=== PATIENT | female | born 1960 | race Caucasian/White ===

== ENCOUNTER 2018-10-06 12:48 | Outpatient (CLI) | payer MEDICAID, SELFPAY ==
[2018-10-06 14:00] LABS: Anion Gap 8.3 mmol/L (3-11); BUN 12 mg/dL (7-18); CO2 28.7 mmol/L (21.0-32.0); CREATININE 0.98 mg/dL (0.55-1.02); Calcium 8.9 mg/dL (8.5-10.1); Chloride 102 mmol/L (98-107); Estimated GFR 58.29 (mL/min/1.73m2); Glucose 144 mg/dL (70-100); Potassium 3.9 mmol/L (3.5-5.1); Sodium 139 mmol/L (136-145)
== END 2018-10-06 13:08 ==
PROVIDERS: PCP Family Medicine; Visit Provider Family Medicine
DX: G62.9 Polyneuropathy, unspecified (principal)
CPT/HCPCS: 36415; 80048

== ENCOUNTER 2018-11-10 12:38 | Emergency (ER) | payer MEDICAID, SELFPAY ==
[2018-11-10 13:08] VITALS: BP 125/92; PULSE 80; RESP 18; TEMP 36.6; O2SAT 94
--- NOTE | 2018-11-10 14:12 | W.ED.GENAD ---
Discharge Plan Disposition Patient Disposition: HOME Condition: Stable Discharge Details Chief Complaint: RespSymp Clinical Impression: Bronchitis, Chronic cough Primary Care Provider: Wyatt Canela ED Provider: Sandy Haq Home Meds and New Rx's Prescriptions: New prednisone 20 mg tablet 20 mg PO DIRECTED Qty: 12 RF: 0 azithromycin [Zithromax] 500 mg tablet 500 mg PO DAILY 5 Days Qty: 5 RF: 0 benzonatate [Tessalon Perles] 100 mg capsule 100 mg PO TID PRN (Reason: cough) Qty: 10 RF: 0 Continued nystatin 100,000 unit/gram powder 1 applic TP BID Qty: 60 RF: 3 nortriptyline 75 mg capsule 75 mg PO HS Qty: 90 RF: 3 prednisone 5 mg tablet 2.5 mg PO DAILY Qty: 45 RF: 3 ascorbate calcium 500 MG tablet 1 tab PO RF: 0 calcium carbonate-vitamin D3 [Caltrate with Vitamin D3] 1 EACH tablet 1 tab PO DAILY RF: 0 ibuprofen [Motrin IB] 200 MG tablet 3 - 4 tab PO QPM RF: 0 multivitamin 1 EACH capsule 1 cap PO DAILY RF: 0 diphenhydramine HCl [Benadryl] 25 MG capsule 25 mg PO TID RF: 0 cyanocobalamin (vitamin B-12) 1,000 MCG tablet 1,000 mcg PO DAILY RF: 0 trazodone 50 MG tablet 3 tab PO HS Qty: 270 RF: 3 omeprazole 40 MG capsule,delayed release(DR/EC) 40 mg PO DAILY Qty: 90 RF: 4 acetaminophen-codeine 1 EACH tablet 1 tab PO QID PRNQty: 30 RF: 1 gabapentin 800 MG tablet PO QID Qty: 450 RF: 4 gabapentin 600 MG tablet 600 mg PO QID Qty: 360 RF: 3 levothyroxine [Synthroid] 125 mcg tablet 125 mcg PO DAILY Qty: 90 RF: 4 atenolol 50 mg tablet 75 mg PO DAILY Qty: 135 RF: 4 lorazepam [Ativan] 0.5 mg tablet 2 mg PO DAILY Qty: 120 RF: 1 Discharge Instructions Instructions: Acute Bronchitis (ED), Acute Cough (ED) Additional Instructions: Use the albuterol inhaler as needed and directed for shortness of breath or wheezing. Take the steroids until finished. If you have no relief or worsening of symptoms in the next 2 days, you may start the antibiotics. Follow-up with your primary care doctor in 1 week for reevaluation. Return immediately to the emergency department any worsening or new concerning symptoms. Discharge Data Discharge Physician: Sandy Haq Medical Decision Making 58-year-old female who presents with cough with chest congestion and wheezing for the past 2 months. Patient admits to occasional shortness of breath and chest tightness as well as low-grade fever. Normal respirations and afebrile. O2 sat 94% on RA. Scattered rhonchi and minimal wheezing. She is speaking in full sentences, appears nontoxic and in no acute distress. 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 She was offered CXR but declines. Presentation can be likely consistent with bronchitis. Will give patient a prescription for prednisone, Tessalon Perles, as well as albuterol inhaler to go. She was also given a prescription for Zithromax or if her symptoms do not improve or worsen for possible pneumonia. She is instructed to follow-up with a primary care doctor for reevaluation and return at any time if worse. HPI General Mode of arrival: ambulatory. Date/Time Provider Initiated Documentation: 11/10/18 13:09. Limitations to Documentation: no limitations. Information obtained by: patient. HPI Narrative: Patient is a 58-year-old female with a history of rheumatoid arthritis, fibromyalgia, lupus who presents with cough with chest congestion, occasional shortness of breath and wheezing for the past 2 months. Admits to low-grade fever of 100.1 a few days ago. She admits to occasional chest tightness. She states she has not had any recent hospital admissions or recent antibiotics. She has used Jocelin-Suches cough and cold without relief. She states the cough is bothering her the most, mainly at night. Related Data Home Medications Medication Instructions Recorded Confirmed ascorbate calcium 1 tab PO 01/18/13 07/09/18 calcium carbonate-vitamin D3 1 tab PO DAILY 01/18/13 11/10/18 [Caltrate with Vitamin D3] ibuprofen [Motrin IB] 3 - 4 tab PO QPM 01/18/13 11/10/18 multivitamin 1 cap PO DAILY 01/18/13 11/10/18 cyanocobalamin (vitamin B-12) 1,000 mcg PO DAILY 10/22/17 11/10/18 diphenhydramine HCl [Benadryl] 25 mg PO TID tab-cap 10/22/17 11/10/18 trazodone 3 tab PO HS #270 tab-cap 12/02/17 11/10/18 omeprazole 40 mg PO DAILY #90 tab-cap 12/12/17 11/10/18 acetaminophen-codeine 1 tab PO QID PRN #30 tab 01/06/18 11/10/18 gabapentin 0 PO QID #450 tab-cap 01/06/18 07/09/18 gabapentin 600 mg PO QID #360 tab-cap 02/19/18 11/10/18 levothyroxine 125 mcg tablet 125 mcg PO DAILY #90 tab-cap 07/03/18 11/10/18 atenolol 50 mg tablet 75 mg PO DAILY #135 tab-cap 07/06/18 11/10/18 nortriptyline 75 mg capsule 75 mg PO HS #90 tab-cap 09/10/18 11/10/18 nystatin 100,000 unit/gram topical 1 applic TP BID #60 gm 09/10/18 11/10/18 powder prednisone 5 mg tablet 2.5 mg PO DAILY #45 tab-cap 09/10/18 11/10/18 lorazepam 0.5 mg tablet 2 mg PO DAILY #120 tab 11/04/18 11/10/18 azithromycin [Zithromax] 500 mg PO DAILY 5 Days #5 tab 11/10/18 benzonatate [Tessalon Perles] 100 mg PO TID PRN #10 cap 11/10/18 prednisone 20 mg PO DIRECTED #12 tab 11/10/18 Previous Rx's Medication Instructions Recorded trazodone 3 tab PO HS #270 tab-cap 12/02/17 omeprazole 40 mg PO DAILY #90 tab-cap 12/12/17 gabapentin 600 mg PO QID #360 tab-cap 02/19/18 levothyroxine 125 mcg tablet 125 mcg PO DAILY #90 tab-cap 07/03/18 atenolol 50 mg tablet 75 mg PO DAILY #135 tab-cap 07/06/18 nortriptyline 75 mg capsule 75 mg PO HS #90 tab-cap 09/10/18 nystatin 100,000 unit/gram topical 1 applic TP BID #60 gm 09/10/18 powder prednisone 5 mg tablet 2.5 mg PO DAILY #45 tab-cap 09/10/18 lorazepam 0.5 mg tablet 2 mg PO DAILY #120 tab 11/04/18 azithromycin [Zithromax] 500 mg PO DAILY 5 Days #5 tab 11/10/18 benzonatate [Tessalon Perles] 100 mg PO TID PRN #10 cap 11/10/18 prednisone 20 mg PO DIRECTED #12 tab 11/10/18 Allergies Allergy/AdvReac Type Severity Reaction Status Date / Time Iodinated Contrast- Oral and Allergy Unknown Unverified 11/10/18 13:14 IV Dye General Stated Complaint: RespSymp CHRISTOPHER: 3 Review of Systems Review of Systems All systems reviewed & are unremarkable except as noted in HPI and below Constitutional Reports as per HPI, Denies chills and Reports fever(s) Eyes Denies blurry vision ENT Denies dizziness, Denies sore throat and Denies throat swelling Cardiovascular Denies chest pain and Reports dyspnea Respiratory Reports cough and Reports dyspnea Gastrointestinal Denies abdominal pain, Denies diarrhea and Denies vomiting Genitourinary Denies hematuria and Denies dysuria Musculoskeletal Denies back pain and Denies numbness Integumentary/Breasts Denies lesions and Denies rash Neurologic Denies dizziness, Denies focal weakness and Denies numbness Allergic/Immunologic Denies throat swelling FOR[facility] Medical History Fibromyalgia (Acute) Lupus (Acute) Rheumatoid arthritis (Chronic) Surgical History History of hysterectomy (Chronic) Biopsy of breast (~1996) Hysterectomy, Laproscopic Family History Mother Heart disease Father Essential hypertension Heart disease Stroke Sister No problems noted. Sister No problems noted. Brother Depression Social History highest education level completed: high school graduate pets and animals: No what type of physical activity do you participate in: none Smoking and Tabacco status: Never alcohol intake: never substance use type: does not use carolynn/denominational: Johovah Witness special carolynn needs: Yes agree to transfusion: No Exam Const General: cooperative, healthy appearing and no acute distress HENMT Head: normal to inspection Ears: hearing grossly normal bilaterally, external ears normal and TM's normal bilaterally General nose exam: external nose normal Face and sinus: normal facial exam Mouth: oral mucosae normal Throat: posterior oropharynx normal Eyes General: appearance normal, both eyes and all related structures EOM: EOM intact bilaterally Neck Neck: normal visual inspection and No submandibular swelling Lymphatic: no lymphadenopathy noted Chest Chest: normal inspection of the chest and no tenderness Resp Effort & Inspection: normal respiratory effort and able to speak in complete sentences Auscultation: clear to auscultation bilaterally, rhonchi upper bilaterally and lower bilaterally and wheezes scattered wheezes (minimal ) Cardio Rate: regular rate Rhythm: regular rhythm GI Inspection: normal to inspection Palpation: soft, not firm, not rigid and nontender Auscultation: normal bowel sounds Back/Spine/Pelvis Thoracic/Lumbar Spine: thoracic and lumbar spine normal to inspection Pelvis: no pain with anterior-posterior compression Skin General skin exam: no rashes or lesions noted Neuro General: alert, awake and oriented x3 Cognition: normal cognition Speech: speech normal Motor: muscle tone normal throughout Sensory Exam: no sensory deficits noted Extrem General: normal to inspection, full ROM, normal capillary refill, no calf tenderness bilaterally and no edema Psych Appearance: grossly normal Mental Status: mental status grossly normal Speech and Movement: speech and movement normal Affect: normal affect Course Vital Signs Temperature 97.9 F 11/10/18 13:08 Pulse 80 11/10/18 13:08 Respiratory Rate 18 11/10/18 13:08 Blood Pressure 125/92 H 11/10/18 13:08 Pulse Oximetry 94 L 11/10/18 13:08 Temperature 97.9 F 11/10/18 13:08 Temperature Source Temporal Artery Scan 11/10/18 13:08 Pulse 80 11/10/18 13:08 Respiratory Rate 18 11/10/18 13:08 Respiratory Effort Non-Labored 11/10/18 13:17 Respiratory Depth Normal 11/10/18 13:17 Blood Pressure 125/92 H 11/10/18 13:08 Pulse Oximetry 94 L 11/10/18 13:08 Oxygen Delivery Method Room Air 11/10/18 13:08 Oxygen Flow Rate 0 11/10/18 13:08 Pain Level 5 11/10/18 13:08
[2018-11-10] MEDS: Albuterol HFA 8 GM 60 PUFF INH IH (14:20)
== END 2018-11-10 15:02 | disposition home or self-care (01) ==
PROVIDERS: Emergency Provider Physician Assistant; PCP Family Medicine
DX: J20.9 Acute bronchitis, unspecified (principal); R05 Cough; Z53.29 Procedure and treatment not carried out because of patient's decision for other reasons
CPT/HCPCS: 99283

== ENCOUNTER 2019-03-22 14:14 | Emergency (ER) | payer MEDICAID, SELFPAY ==
[2019-03-22 14:25] VITALS: BP 121/73; RESP 18; TEMP 36.6; O2SAT 96
--- NOTE | 2019-03-22 14:52 | ED.GENADUL_ITS ---
Discharge Plan Disposition Patient Disposition: HOME Condition: Stable Discharge Details Chief Complaint: Sorethroat Clinical Impression: Acute pharyngitis Primary Care Provider: Wyatt Canela ED Provider: David Curtis Home Meds and New Rx's Prescriptions: Continued nystatin 100,000 unit/gram powder 1 applic TP BID Qty: 60 RF: 3 nortriptyline 75 mg capsule 75 mg PO HS Qty: 90 RF: 3 ascorbate calcium 500 MG tablet 1 tab PO RF: 0 calcium carbonate-vitamin D3 [Caltrate with Vitamin D3] 1 EACH tablet 1 tab PO DAILY RF: 0 ibuprofen [Motrin IB] 200 MG tablet 3 - 4 tab PO QPM RF: 0 multivitamin 1 EACH capsule 1 cap PO DAILY RF: 0 diphenhydramine HCl [Benadryl] 25 MG capsule 25 mg PO TID RF: 0 acetaminophen-codeine 1 EACH tablet 1 tab PO QID PRNQty: 30 RF: 1 levothyroxine [Synthroid] 125 mcg tablet 125 mcg PO DAILY Qty: 90 RF: 4 atenolol 50 mg tablet 75 mg PO DAILY Qty: 135 RF: 4 lorazepam [Ativan] 0.5 mg tablet 2 mg PO DAILY Qty: 120 RF: 1 trazodone 50 mg tablet 150 mg PO HS Qty: 270 RF: 3 cyanocobalamin (vitamin B-12) 1,000 mcg tablet 1,000 mcg PO DAILY Qty: 90 RF: 4 gabapentin 800 mg tablet See Rx Instructions PO .COMPLEX Qty: 450 RF: 4 prednisone 5 mg tablet 2.5 mg PO DAILY Qty: 45 RF: 3 omeprazole 40 mg capsule,delayed release(DR/EC) 40 mg PO DAILY Qty: 90 RF: 4 gabapentin 600 mg tablet 600 mg PO TID RF: 0 Discharge Instructions Instructions: Pharyngitis (ED) Additional Instructions: Continue to stay well-hydrated, allow for extra rest, and take [id number] sore throat medications as directed on packaging. Return immediately to the emergency department for any new or significant worsening of symptoms, difficulty breathing, or inability to swallow. Otherwise follow-up with your primary care provider for reassessment if not improving over the next week Referrals: Wyatt Canela MD [Primary Care Provider] - (As needed for reassessment) Discharge Data Discharge Date/Time-TO BE ENTERED AT DEPARTURE: 03/22/19 15:27 Medical Decision Making Patient presenting to the emergency department for chief complaint of sore throat. Patient states that this started on Friday morning and has gotten progressively worse since and has noted some right ear pain along with a mild dry cough. She does state a low-grade fever of 99.2. Patient is taken some [id number] ibuprofen. staff research associate initiated rapid strep protocol which was reviewed as negative. Strep screen was physical exam reveals that page patient does not have tonsils otherwise posterior pharynx erythema, no exudates, no swelling, no stridor, clear lung sounds, mild anterior cervical lymphadenopathy otherwise TMs are clear bilateral and no other HEENT respiratory or cardiac findings. Given reassuring exam with negative rapid strep testing feel that more likely this is pharyngitis of viral etiology. Discussed thoroughly with patient conservative management along with return precautions. Patient to return for any new or worsening symptoms otherwise follow-up with primary care if not improving. After discussion of diagnosis and plan of care patient has no further needs, questions, or concerns and states clear understanding to return to the emergency department for any worsening symptoms. HPI General Mode of arrival: ambulatory . Date/Time Provider Initiated Documentation: 03/22/19 14:21 . Limitations to Documentation: no limitations . Information obtained by: patient and RN notes reviewed . History of Present Illness 58 year old F presents to the emergency department with the chief complaint of Sore throat, described as moderate, with intensity rated at 8. Quality is described as aching, and is localized to the mouth (Sore throat). Patient started experiencing this day(s) (3) and it has been constant. No relieving factors improve symptom(s), No exacerbating factors reported . Patient notes cough. Patient did receive the following treatments prior to arrival, NSAID Related Data Home Medications Medication Instructions Recorded Confirmed ascorbate calcium 1 tab PO 01/18/13 11/13/18 calcium carbonate-vitamin D3 1 tab PO DAILY 01/18/13 03/22/19 [Caltrate with Vitamin D3] ibuprofen [Motrin IB] 3 - 4 tab PO QPM 01/18/13 03/22/19 multivitamin 1 cap PO DAILY 01/18/13 03/22/19 diphenhydramine HCl [Benadryl] 25 mg PO TID tab-cap 10/22/17 03/22/19 acetaminophen-codeine 1 tab PO QID PRN #30 tab 01/06/18 03/22/19 levothyroxine 125 mcg tablet 125 mcg PO DAILY #90 tab-cap 07/03/18 03/22/19 atenolol 50 mg tablet 75 mg PO DAILY #135 tab-cap 07/06/18 03/22/19 nortriptyline 75 mg capsule 75 mg PO HS #90 tab-cap 09/10/18 03/22/19 nystatin 100,000 unit/gram topical 1 applic TP BID #60 gm 09/10/18 03/22/19 powder lorazepam 0.5 mg tablet 2 mg PO DAILY #120 tab 11/04/18 03/22/19 trazodone 50 mg tablet 150 mg PO HS #270 tab-cap 11/19/18 03/22/19 cyanocobalamin (vit B-12) 1,000 1,000 mcg PO DAILY #90 tab 11/27/18 03/22/19 mcg tablet gabapentin 800 mg tablet See Rx Instructions PO .COMPLEX 01/19/19 03/22/19 #450 tab-cap prednisone 5 mg tablet 2.5 mg PO DAILY #45 tab-cap 02/16/19 03/22/19 omeprazole 40 mg capsule,delayed 40 mg PO DAILY #90 tab-cap 03/08/19 03/22/19 release gabapentin 600 mg PO TID 03/22/19 03/22/19 Previous Rx's Medication Instructions Recorded levothyroxine 125 mcg tablet 125 mcg PO DAILY #90 tab-cap 07/03/18 atenolol 50 mg tablet 75 mg PO DAILY #135 tab-cap 07/06/18 nortriptyline 75 mg capsule 75 mg PO HS #90 tab-cap 09/10/18 nystatin 100,000 unit/gram topical 1 applic TP BID #60 gm 09/10/18 powder lorazepam 0.5 mg tablet 2 mg PO DAILY #120 tab 11/04/18 trazodone 50 mg tablet 150 mg PO HS #270 tab-cap 11/19/18 cyanocobalamin (vit B-12) 1,000 1,000 mcg PO DAILY #90 tab 11/27/18 mcg tablet gabapentin 800 mg tablet See Rx Instructions PO .COMPLEX 01/19/19 #450 tab-cap prednisone 5 mg tablet 2.5 mg PO DAILY #45 tab-cap 02/16/19 omeprazole 40 mg capsule,delayed 40 mg PO DAILY #90 tab-cap 03/08/19 release Allergies Allergy/AdvReac Type Severity Reaction Status Date / Time Iodinated Contrast- Oral and Allergy Unknown Unverified 11/13/18 12:59 IV Dye albuterol AdvReac Intermediate Chest Verified 11/13/18 13:11 heaviness and cough General Stated Complaint: Sorethroat CHRISTOPHER: 4 Review of Systems Constitutional Reports body ache(s), Denies chills, Reports fever(s) (Reports low-grade 99.1), Denies headache(s), Reports malaise and Reports poor appetite Eyes Denies eye discharge ENT Reports as per HPI, Denies ear discharge, Reports otalgia, Denies headache(s), Denies nasal congestion, Denies nasal discharge, Denies neck pain, Reports sore throat and Denies throat swelling Cardiovascular Denies chest pain and Denies dyspnea Respiratory Reports cough and Denies dyspnea Musculoskeletal Denies joint swelling and Denies neck pain Integumentary/Breasts Denies rash Neurologic Denies headache(s) Allergic/Immunologic Denies throat swelling [facility] Medical History Fibromyalgia (Acute) Lupus (Acute) Rheumatoid arthritis (Chronic) Surgical History History of hysterectomy (Chronic) Biopsy of breast (~1996) Hysterectomy, Laproscopic Family History Mother Heart disease Father Essential hypertension Heart disease Stroke Sister No problems noted. Sister No problems noted. Brother Depression Social History Smoking/Tobacco Use Status: Never Alcohol Intake: current Alcohol Intake frequency: holidays/special occasions only Drug use: Never Substance use type: does not use Pets and animals: No What type of physical activity do you participate in: none Renate/Pentecostalism: Faith Special renate needs: Yes Agree to transfusion: No Do you feel safe in your relationship?: Yes Exam Const General: cooperative, comfortable and no acute distress Orientation: alert and awake [facility] Head: normal to inspection, normocephalic and atraumatic Ears: hearing grossly normal bilaterally, external ears normal and TM's normal bilaterally General nose exam: external nose normal Mouth: oral mucosae normal, no drooling, no muffled voice and no trismus Throat: uvula midline, posterior oropharynx abnormal erythema; no exudates and tonsils absent Neck Neck: normal visual inspection, full ROM, no meningeal signs, trachea midline, supple and lymphadenopathy (Anterior cervical) Resp Effort & Inspection: normal respiratory effort and able to speak in complete sentences Auscultation: clear to auscultation bilaterally Cardio Rate: regular rate Rhythm: regular rhythm Heart Sounds: S1 normal, S2 normal, normal S1 and S2, no click, no gallops, no murmurs and no rubs Skin General skin exam: no rashes or lesions noted and dry skin (warm) Course Vital Signs Temperature 36.6 C 03/22/19 14:25 Respiratory Rate 18 03/22/19 14:25 Blood Pressure 121/73 03/22/19 14:25 Pulse Oximetry 96 03/22/19 14:25 Temperature 36.6 C 03/22/19 14:25 Temperature Source Skin 03/22/19 14:25 Respiratory Rate 18 03/22/19 14:25 Respiratory Effort Non-Labored 03/22/19 14:28 Blood Pressure 121/73 03/22/19 14:25 Blood Pressure Position Sitting 03/22/19 14:25 Pulse Oximetry 96 03/22/19 14:25 Oxygen Delivery Method Room Air 03/22/19 14:25 Oxygen Flow Rate 0 03/22/19 14:25 Pain Level 8 03/22/19 14:25 Lab/Test Results Lab/Test Results: 03/22/19 14:40 Tonsil - Not Specified Streptococcus Screen (JAIRO) - Pending
== END 2019-03-22 15:27 | disposition home or self-care (01) ==
PROVIDERS: Emergency Provider Nurse Practitioner Family; PCP Family Medicine
DX: J02.9 Acute pharyngitis, unspecified (principal)
CPT/HCPCS: 87880; 99282; 87081

== ENCOUNTER 2019-05-05 12:31 | Outpatient (CLI) | payer MEDICAID, SELFPAY ==
[2019-05-05 14:09] LABS: TSH 0.72 uIU/mL (0.36-3.74)
[2019-05-06 04:38] LABS: Vitamin D 25 Total 34.4 ng/ml (30-100)
[2019-05-07 10:18] LABS: IgA 286 mg/dL (85-499); Interpretation SEE COMMENTS; Tissue Transglutaminase IgA <1.2 U/mL (<4.0)
== END 2019-05-05 12:51 ==
PROVIDERS: PCP Family Medicine; Visit Provider Family Medicine
DX: E03.9 Hypothyroidism, unspecified (principal); D51.9 Vitamin B12 deficiency anemia, unspecified; K58.9 Irritable bowel syndrome, unspecified; M81.0 Age-related osteoporosis without current pathological fracture
CPT/HCPCS: 36415; 82306; 82784; 83516; 84443

== ENCOUNTER 2019-05-19 12:00 | Outpatient (CLI) | payer MEDICAID, SELFPAY ==
[2019-05-19 12:56] LABS: Abs Immature Grans 0.01 k/cumm (0.0-0.09); Absolute Basophil Count 0.08 k/cumm (0.0-0.2); Absolute Eosinophil Count 0.05 k/cumm (0.0-0.7); Absolute Lymphocyte Count 1.01 k/cumm (1.2-3.4); Absolute Monocyte Count 0.58 k/cumm (0.11-0.7); Absolute Neutrophil Count 2.16 k/cumm (1.2-6.7); Basophils % 2.1; Eosinophils % 1.3; HCT 38.5 % (36.0-46.0); HGB 12.6 g/dL (12.0-15.5); Immature Grans % 0.3; Mean Corp. HGB Concentration 32.7 g/dL (32.0-36.0); Mean Corpuscular Hemoglobin 30.6 pg (27.0-33.0); Mean Corpuscular Volume 93.4 fL (80-95); Mean Platelet Volume 10.7 fL (8.0-11.0); Monocytes % 14.9; Neutrophils % 55.4; Platelet Count 336 x1000/uL (130-400); RBC 4.12 m/cumm (4.00-5.20); RBC Distribution Width 13.1 % (11.7-14.6); White Blood Cell Count 3.89 k/cumm (4.4-10.8)
[2019-05-19 13:05] LABS: C-Reactive Protein 0.35 mg/dL (0.0-0.3)
[2019-05-19 13:53] LABS: ESR 40 mm/hr (0-30)
== END 2019-05-19 12:20 ==
PROVIDERS: PCP Family Medicine; Visit Provider Family Medicine
DX: M32.9 Systemic lupus erythematosus, unspecified (principal)
CPT/HCPCS: 36415; 85652; 85025; 86140

== ENCOUNTER 2019-06-07 00:37 | Outpatient (CLI) | payer MEDICAID, SELFPAY ==
--- NOTE | 2019-06-07 15:27 | DI.RAD_ITS ---
EXAM: XR KNEE RT 3V AP,LAT,ZION CLINICAL HISTORY: . TECHNIQUE: 2D digital imaging was performed. COMPARISON: None. FINDINGS: BONES: No acute fracture is present. No bony destructive lesion is seen. JOINTS: The knee is normally aligned. No joint effusion is seen. SOFT TISSUE: Normal. IMPRESSION: Unremarkable radiographs of the right knee.
== END 2019-06-07 00:57 ==
PROVIDERS: PCP Family Medicine; Visit Provider Family Medicine
DX: M17.11 Unilateral primary osteoarthritis, right knee; M25.561 Pain in right knee
CPT/HCPCS: 73562

== ENCOUNTER 2019-06-10 00:56 | Outpatient (CLI) | payer MEDICAID, SELFPAY ==
--- NOTE | 2019-06-10 15:30 | DI.DEXA_ITS ---
EXAM: The scanogram XR DEXA BONE DENSITY W/WO CK INDICATION: K58.9 IBS, CORTICOSTEROID DEPENDENCE. TECHNIQUE: Dexa scan was performed according to the usual protocol. FINDINGS:: The scanogram is unremarkable. For the left hip and a T-score of 0.9 and a Z-score of 1.8 are within the normal range. For the lumbar spine a T-score of 0.4 and a Z-score 1.8 are within the normal range.
== END 2019-06-10 01:16 ==
PROVIDERS: PCP Family Medicine; Visit Provider Family Medicine
DX: K58.9 Irritable bowel syndrome, unspecified (principal); Z79.52 Long term (current) use of systemic steroids; Z13.820 Encounter for screening for osteoporosis
CPT/HCPCS: 77080

== ENCOUNTER 2020-04-24 02:11 | Outpatient (CLI) | payer MEDICAID, SELFPAY ==
[2020-04-24 13:35] LABS: Bilirubin Negative (Negative); Blood Trace-intact (Negative); Clarity Clear (Clear); Glucose Negative (Negative); Ketones Negative (Negative); Leukocyte Esterase Trace (Negative); Nitrite Negative (Negative); Specific Gravity 1.015 (1.005-1.025); Urobilinogen 0.2 EU/dL (Up TO 0.2)
[2020-04-24 13:39] LABS: Hemoglobin A1C 5.7 % (3.8-5.6)
[2020-04-24 13:40] LABS: Bacteria Rare HPF (Negative); Epithelial Cells Many HPF (Negative)
[2020-04-24 13:41] LABS: Casts Negative LPF (Negative); Crystals Negative HPF (Negative); Mucus Negative (Negative); Other Cells Rare Renal (Negative)
[2020-04-24 13:42] LABS: C & S Indicated? No/Sq. Contamination
[2020-04-24 15:04] LABS: Anion Gap 9.6 mmol/L (3-11); BUN 11 mg/dL (7-18); CO2 24.4 mmol/L (21.0-32.0); CREATININE 1.02 mg/dL (0.55-1.02); Calcium 9.2 mg/dL (8.5-10.1); Calculated LDL 116 mg/dL (<100); Chloride 105 mmol/L (98-107); Cholesterol 196 mg/dL (<200); Estimated GFR 55.47 (mL/min/1.73m2); Glucose 181 mg/dL (74-106); HDL Cholesterol 37 mg/dL (40-60); Potassium 3.7 mmol/L (3.5-5.1); Sodium 139 mmol/L (136-145); TSH 5.35 uIU/mL (0.36-3.74); Triglyceride 215 mg/dL (<150); Vitamin B12 1791 pg/mL (193-986)
== END 2020-04-24 02:31 ==
PROVIDERS: PCP Family Medicine; Visit Provider Family Medicine
DX: E03.9 Hypothyroidism, unspecified (principal); R53.83 Other fatigue; R73.03 Prediabetes; D51.9 Vitamin B12 deficiency anemia, unspecified; R39.11 Hesitancy of micturition
CPT/HCPCS: 36415; 80048; 80061; 81003; 81015; 82607; 83036; 84443

== ENCOUNTER 2020-07-31 00:18 | Outpatient (CLI) | payer MEDICAID, SELFPAY ==
--- NOTE | 2020-07-31 10:30 | DI.NM_ITS ---
APPROVED REPORT Exam: Pharmacologic Patient Location: Out-Patient Room/Bed: Stress Nurse: Debbie Webster RN BMI: 34.56 Baseline Rhythm: Sinus Rhythm Indications: Aching, intermittent precordial chest pain, occuring daily. Medical History Medical History: Neuropathy, Hypothyroidism, Fibromyalgia, Rheumatoid Arthritis Cardiac Medications: Omeprazole, Atenolol Allergies: Albuterol, Contrast Dye Cardiac Risk Factors: FHX of CAD, Hyperlipidemia Previous Cardiac Procedures: None Pretest Chest Pain Characteristics: 11/29 precordial chest pain. Exercise History: Sedentary Physical Disabilities: Legs Lung Sounds: Clear to auscultation Heart Sounds: Regular Stress Test Details Test: Exercise stress converted to pharmacologic stress due to failure to obtain a diagnostic stress test. Reason for pharmacologic stress test: changed from exercise stress test due to inability to reach t arget heart rate. Nuclear Acquisition: Stress Tc-99m/Stress Tc-99m 1 day Rest Isotope: Tc-99m Sestamibi. Dose: 10.8 Date: 07/31/2020 Injection Time: 1045 Stress Isotope: Tc-99m Sestamibi. Dose: 35 Date: 07/31/2020 Injection Time: 1325 HR Resting HR Supine: 92 bpm Max Heart Rate (APMHR): 161.318081 bpm Resting HR Standin bpm Target HR (85% APMHR): 136.470963 bpm Max HR Achieved: 130 bpm % of APMHR: 80.75 Recovery HR: 104 bpm HR response to stress: Normal HR response to stress BP Resting BP Supine: 132/80 mmHg Resting BP Standin/82 mmHg Max BP: 142/66 mmHg Recovery BP: 134/78 mmHg ECG Resting ECG: Sinus Rhythm Ectopy: None. Stress ECG: Sinus Tachycardia ST Change: No significant ST segment changes noted. Arrhythmia: None. Recovery ECG: Sinus Tachycardia Recovery ST Change: No significant ST segment changes noted. Recovery Arrhythmia: None. Clinical Reason for Termination: Fatigue Stress Symptoms: Leg Fatigue Exercise duration: 2 min46 sec Highest Stage Reached: Stage 1: 1.7 mph at 10% grade. Exercise capacity: 4.64 METs Angina Score: Non-Limiting Stress ECG Conclusion 1. The resting electrocardiogram was normal. The patient exercised on the Ga protocol and complet ed a workload of 4.64 METS, limited by leg fatigue 2. Blunted heart rate and blood pressure response to exercise. The patient received pharmacologic st ress with regadenoson 3. Peak heart rate achieved was 80% of predicted. Electrocardiographically the test was nondiagnosti c due to inadequate heart rate 4. No dysrhythmias were seen Stress Test Summary STAGE Time (mins) Speed (mph) Grade (%) HR BP SYMPTOMS METS Supine 92 132/80 3/10 CP Standing 96 138/82 3/10 CP 1 3 1.7 10 130 3/10 CP 4.6 1 min post Lexiscan injection 120 142/66 3/10 CP 3 min post Lexiscan injection 110 128/70 3/10 CP 6 min post Lexiscan injection 104 134/78 3/10 CP MPI Conclusion Normal myocardial perfusion without evidence of ischemia or infarction. EF 74% Radiologist Interpretation Radiologist Interpretation by: Gurjit Lopes MD Interpretation Date/Time: 08/02/2020 16:07:26
[2020-07-31] MEDS: Regadenoson 0.4 MG/5 ML SYR IVP (13:24)
== END 2020-07-31 00:38 ==
PROVIDERS: PCP Family Medicine; Visit Provider Family Medicine
DX: R07.2 Precordial pain (principal); Z82.49 Family history of ischemic heart disease and other diseases of the circulatory system; E78.5 Hyperlipidemia, unspecified
CPT/HCPCS: 78452; 93017; J2785

== ENCOUNTER 2020-12-08 02:30 | Outpatient (CLI) | payer MEDICAID, SELFPAY ==
[2020-12-08 12:43] LABS: Calculated LDL 58 mg/dL (<100); Cholesterol 135 mg/dL (<200); HDL Cholesterol 52 mg/dL (40-60); TSH 1.33 uIU/mL (0.36-3.74); Triglyceride 126 mg/dL (<150)
== END 2020-12-08 02:31 | disposition home or self-care (01) ==
LOC: LBO 02:30
PROVIDERS: PCP Family Medicine; Visit Provider Family Medicine
DX: E03.9 Hypothyroidism, unspecified (principal); E78.5 Hyperlipidemia, unspecified
CPT/HCPCS: 36415; 80061; 84443

== ENCOUNTER 2021-09-11 14:03 | Outpatient (CLI) | payer MEDICAID, SELFPAY ==
--- NOTE | 2021-09-11 14:00 | RT.EKG_ITS ---
APPROVED REPORT Exam: Resting ECG Reason for Exam: chest pain Patient Location: O Conclusion Sinus Rhythm Nondiagnostic anterior T abnormalities
== END 2021-09-11 14:04 | disposition home or self-care (01) ==
LOC: DI.CM 14:04
PROVIDERS: PCP Family Medicine; Visit Provider Family Medicine
DX: R07.89 Other chest pain (principal)
CPT/HCPCS: 93010

== ENCOUNTER 2021-09-11 15:02 | Outpatient (REF) | payer MEDICAID, SELFPAY ==
[2021-09-11 20:40] LABS: Absolute Basophil Count 0.09 10^3/uL (0.0-0.2); Absolute Eosinophil Count 0.06 10^3/uL (0.0-0.7); Absolute Lymphocyte Count 1.31 10^3/uL (1.2-3.4); Absolute Monocyte Count 0.72 10^3/uL (0.1-0.8); Absolute Neutrophil Count 1.76 10^3/uL (1.2-6.7); Basophils % 2.3; Eosinophils % 1.5; HCT 38.7 % (36.0-46.0); HGB 12.8 g/dL (11.2-15.7); Lymphocytes % 33.2; MCH 31.6 pg (27.0-33.0); MCHC 33.1 % (32.0-36.0); MCV 95.6 fL (80-95); MPV 10.8 fL (8.0-11.0); Monocytes % 18.3; Neutrophils % 44.7; Nucleated RBC 0 %; Platelet Count 328 10^3/uL (130-400); RBC 4.05 10^6/uL (3.93-5.22); RDW 13.2 % (11.7-14.6); RDW-SD 47.1 fL; WBC 3.94 10^3/uL (4.4-10.8)
[2021-09-11 20:48] LABS: ESR 38 mm/hr (0-30)
[2021-09-11 20:51] LABS: Bilirubin Negative (Negative); Blood Negative (Negative); Clarity Clear (Clear); Glucose Negative (Negative); Ketones Negative (Negative); Leukocyte Esterase Trace (Negative); Nitrite Negative (Negative); Urobilinogen 0.2 EU/dL (Up TO 0.2)
[2021-09-11 21:08] LABS: Crystals Mod Calcium Oxalate HPF (Negative); Epithelial Cells Many HPF (Negative); Mucus Trace (Negative); Other Cells Few Renal (Negative); RBC Negative HPF (0-2)
[2021-09-11 21:09] LABS: C & S Indicated? C&S Done As Ordered
[2021-09-11 21:10] LABS: Bacteria Rare HPF (Negative)
[2021-09-11 22:02] LABS: ALT 53 U/L (14-59); AST 34 U/L (15-37); Albumin 4.1 g/dL (3.4-5.0); Alkaline Phosphatase 102 U/L (46-116); Anion Gap 10.4 mmol/L (3-11); BUN 13 mg/dL (7-18); Bilirubin, Total 0.4 mg/dL (0.2-1.0); CO2 26.6 mmol/L (21.0-32.0); CREATININE 0.9 mg/dL (0.55-1.02); Calcium 9.2 mg/dL (8.5-10.1); Calculated LDL 60 mg/dL (<100); Chloride 102 mmol/L (98-107); Cholesterol 139 mg/dL (<200); Glucose 73 mg/dL (74-106); HDL Cholesterol 54 mg/dL (40-60); Potassium 4.1 mmol/L (3.5-5.1); Sodium 139 mmol/L (136-145); TSH (W/Ref FT4) 0.36 uIU/mL (0.36-3.74); Triglyceride 128 mg/dL (<150)
[2021-09-11 22:17] LABS: Vitamin B12 > 2000 pg/mL (193-986)
[2021-09-11 23:13] LABS: C-Reactive Protein 0.37 mg/dL (0.0-0.3)
[2021-09-13 05:30] LABS: Vitamin D 25 Total 44.7 ng/mL (30-100)
== END 2021-09-11 15:03 | disposition home or self-care (01) ==
LOC: LBN 15:02
PROVIDERS: PCP Family Medicine; Visit Provider Family Medicine
DX: M54.50 Low back pain, unspecified (principal); R07.9 Chest pain, unspecified; R35.0 Frequency of micturition; I10 Essential (primary) hypertension
CPT/HCPCS: 80053; 80061; 82306; 85652; 81003; 81015; 82607; 84443; 85025; 86140; 87086

== ENCOUNTER 2021-11-27 02:32 | Outpatient (CLI) | payer MEDICAID, SELFPAY ==
--- NOTE | 2021-11-27 08:00 | DI.MAMMO_ITS ---
Exam(s) MG MAMMO SCREENING 60 MIN DUR EXAM: MG MAMMO SCREENING 60 MIN DUR CLINICAL HISTORY: breast cancer screening,Z12.31. TECHNIQUE: Bilateral full field digital CC and MLO mammographic images were obtained with 3D tomosyn thesis and utilizing computer aided detection (CAD). COMPARISON: Prior mammograms were reviewed, the most recent being October 2017. FINDINGS: There has been no significant change in appearance and distribution of the fibroglandular tissue whic h is again noted be somewhat dense, this decreasing the sensitivity of the mammogram for finding hidd en underlying lesions A skin mole is noted medially in the left breast. This was proven additional image performed with sk in mole marker in place. There are no new spiculated masses nor malignant appearing microcalcification groups. There is no significant architectural distortion nor skin thickening-retraction. IMPRESSION: Dense bilateral fibroglandular tissue. No obvious radiographic evidence of malignancy nor significan t change compared to prior mammograms. BI-RADS Category 1 - Negative Breast Density - Category C - Heterogeneously dense Breast density Category C or D implies that the patient has dense breast tissue. Dense breast tissue can make it harder to find cancer on a mammogram. Dense breast tissue is also associated with an incr eased risk of breast cancer. This information about the result of the mammogram report was provided to the patient to raise their awareness. Use this report when you speak with the patient about their risks for breast cancer, which includes their family history. At that time, you may recommend additional screening tests (Ultrasoun d or MRI) as these tests may add significant information. A negative radiographic report should not delay biopsy if a dominant or clinically suspicious mass is present. Up to ten percent of cancers are not identified on mammography. A negative report may reinforce clinical impression. Adenosis and dense breasts may obscure an underlying neoplasm. False positive reports average 6 to 10%. Patient will receive a letter notifying them of these results.
== END 2021-11-27 02:52 ==
PROVIDERS: PCP Nurse Practitioner Family; Visit Provider Nurse Practitioner Family
DX: Z12.31 Encounter for screening mammogram for malignant neoplasm of breast (principal)
CPT/HCPCS: 77063; 77067

== ENCOUNTER 2022-08-08 11:08 | Emergency (ER) | payer MEDICAID, SELFPAY ==
[2022-08-08 11:10] VITALS: BP 133/82; PULSE 89; RESP 17; TEMP 36.6; O2SAT 97
--- NOTE | 2022-08-08 11:45 | RT.EKG_ITS ---
APPROVED REPORT Exam: Resting ECG Reason for Exam: chest pain, falls Patient Location: E HR:85 bpm ECG Measurements Heart Rate 85 AXIS OK 189 P 53 QRSd 94 QRS 61 QT 373 T 63 QTc 445 Conclusion Sinus rhythm...normal P axis, V-rate 60- 99 Probable left atrial enlargement...P >50mS, <-0.10mV V1 Nonspecific T abnrm, anterolateral leads...T <-0.10mV, I aVL V2-V6
--- NOTE | 2022-08-08 11:45 | DI.RAD_ITS ---
Exam(s) XR CHEST 2V PA LATERAL EXAM: XR CHEST 2V PA LATERAL CLINICAL HISTORY: left chest wall pain TECHNIQUE: 2D digital imaging was performed. COMPARISON: CR CHEST 2 VIEWS PA,LAT from 06/13/2011 FINDINGS: The heart is not enlarged. The lungs are clear and well expanded. No pleural effusion seen. Mediastin al contours appear intact. IMPRESSION: Normal chest. RADIATION DOSE DELIVERED: Total DLP
--- NOTE | 2022-08-08 11:45 | DI.CT_ITS ---
Exam(s) CT HEAD CERV SPINE FACIAL WO EXAM: CT HEAD CERV SPINE FACIAL WO COMPARISON: No exams were available for comparison FINDINGS: CT examination of the cervical spine was performed without contrast administration. There is no evidence of acute cervical spine fracture or dislocation. Intervertebral disc spaces are well maintained. Tracheolaryngeal structures appear intact. No cervical mass or adenopathy. Noncontrast cranial CT was performed. There is moderate bifrontal cerebral atrophy. No evidence of acute intracranial hemorrhage, mass effect, or midline shift. No calvarial fracture. The orbital and temporal bone structures appear intact. Visualized mastoid air cells and paranasal sinuses appear clear except for minimal mucoperiosteal thi ckening of the sphenoid sinuses. CT examination of the facial region was also performed. There is no evidence of an orbital facial fr acture. No intra orbital fluid collection or mass. The globes, retrobulbar fat, optic nerves, and e xtraocular musculature appear intact. Maxilla and visualized mandible appear intact. IMPRESSION: No evidence of acute cervical spine injury. No evidence of acute intracranial injury. No evidence of acute facial injury. RADIATION DOSE DELIVERED: Total DLP Total DLP DATA REPOSITORY: All CT scans at this facility are submitted to the National Radiology Data Registry (NRDR) Dose Index Registry (DIR) with the [employer] ([employer]). RADIATION OPTIMIZATION: All CT scans at this facility use at least one of these dose optimization te chniques: automated exposure control; mA and/or kV adjustment per patient size (includes targeted exa ms where dose is matched to clinical indication); or iterative reconstruction.
[2022-08-08 13:16] LABS: Bilirubin Negative (Negative); Blood Negative (Negative); Clarity Clear (Clear); Glucose Negative (Negative); Ketones Negative (Negative); Leukocyte Esterase Negative (Negative); Nitrite Negative (Negative); Urobilinogen 0.2 EU/dL (Up TO 0.2)
[2022-08-08 13:17] LABS: Abs Immature Grans 0.01 10^3/uL (0.0-0.06); Absolute Basophil Count 0.05 10^3/uL (0.0-0.2); Absolute Eosinophil Count 0.03 10^3/uL (0.0-0.7); Absolute Lymphocyte Count 0.88 10^3/uL (1.2-3.4); Absolute Monocyte Count 0.58 10^3/uL (0.1-0.8); Absolute Neutrophil Count 1.33 10^3/uL (1.2-6.7); Basophils % 1.7; HCT 35.3 % (36.0-46.0); Immature Grans % 0.3; Lymphocytes % 30.6; MCH 32.2 pg (27.0-33.0); MCV 95 fL (80-95); MPV 10.1 fL (8.0-11.0); Monocytes % 20.1; Neutrophils % 46.3; Platelet Count 264 10^3/uL (130-400); RBC 3.73 10^6/uL (3.93-5.22); RDW 12.5 % (11.7-14.6); RDW-SD 43.7 fL; WBC 2.88 10^3/uL (4.4-10.8)
[2022-08-08 13:42] LABS: ALT 36 U/L (14-59); AST 25 U/L (15-37); Albumin 3.9 g/dL (3.4-5.0); Alkaline Phosphatase 95 U/L (46-116); Anion Gap 6.9 mmol/L (3-11); BUN 11 mg/dL (7-18); Bilirubin, Total 0.3 mg/dL (0.2-1.0); CO2 31.1 mmol/L (21.0-32.0); Calcium 9.1 mg/dL (8.5-10.1); Chloride 104 mmol/L (98-107); Estimated GFR 64.09 (mL/min/1.73m2); Glucose 92 mg/dL (74-106); Lipase 41 U/L (73-393); Potassium 3.7 mmol/L (3.5-5.1); Sodium 142 mmol/L (136-145); TSH (W/Ref FT4) 0.05 uIU/mL (0.36-3.74); Total Protein 8.4 g/dL (6.4-8.2); Troponin I < 50 ng/L (<or=60)
[2022-08-08 14:00] VITALS: BP 136/79; PULSE 89; TEMP 36.4; O2SAT 93
[2022-08-08 14:03] LABS: FREE T4 1.23 ng/dL (0.76-1.46)
--- NOTE | 2022-08-08 14:52 | DI.RAD_ITS ---
Exam(s) XR FINGER RT MIDDLE EXAM: XR FINGER RT MIDDLE CLINICAL HISTORY: pip injury TECHNIQUE: COMPARISON: No exams were available for comparison FINDINGS: Three views were obtained. No evidence of acute fracture or dislocation. IMPRESSION: RADIATION DOSE DELIVERED: Total DLP
--- NOTE | 2022-08-08 14:53 | W.ED.GENAD ---
Discharge Plan Disposition Patient Disposition: Home Condition: Stable Discharge Details Clinical Impression: Head injury, Eyebrow laceration, Hyperthyroidism Primary Care Provider: [facility] ED Provider: Romelia Marvin Home Meds and New Rx's Prescriptions: Continued nystatin 100,000 unit/gram powder 1 applic TP BID Qty: 60 3RF ascorbate calcium (vitamin C) 500 MG tablet 1 tab PO DAILY calcium carbonate-vitamin D3 [Caltrate with Vitamin D3] 1 EACH tablet 1 tab PO DAILY ibuprofen [Motrin IB] 200 MG tablet 3 - 4 tab PO QPM multivitamin 1 EACH capsule 1 cap PO DAILY (DME) blood-glucose meter [Embrace TALK Glucose Monitor] Misc See Rx Instructions .ROUTE .MEDSUPPLY Qty: 1 0RF Rx Instructions: Once daily (DME) lancets Misc See Rx Instructions .ROUTE .MEDSUPPLY Qty: 100 0RF Rx Instructions: Once daily (DME) Embrace TALK test strips Strip See Rx Instructions .ROUTE .MEDSUPPLY Qty: 100 8RF Rx Instructions: Once daily trazodone 50 mg tablet 150 mg PO HS Qty: 270 3RF nortriptyline 75 mg capsule 75 mg PO HS Qty: 90 3RF prednisone 5 mg tablet 2.5 mg PO DAILY Qty: 45 3RF atenolol 50 mg tablet 75 mg PO DAILY Qty: 135 3RF triamcinolone acetonide 0.5 % cream 1 applic topical BID Qty: 15 0RF omeprazole 40 mg capsule,delayed release(DR/EC) 40 mg PO DAILY Qty: 90 4RF rosuvastatin 5 mg tablet 5 mg PO HS Qty: 90 4RF diphenhydramine HCl [Benadryl] 25 mg capsule 25 mg PO TID duloxetine 60 mg capsule,delayed release(DR/EC) 60 mg PO DAILY Qty: 90 3RF lorazepam 2 mg tablet 2 mg PO DAILY Qty: 28 0RF gabapentin 300 mg capsule 900 mg PO TID Qty: 270 3RF No Action levothyroxine 112 mcg tablet 112 mcg PO DAILY Qty: 90 0RF Discharge Instructions Instructions: Head Injury (ED), Facial Laceration (ED) Additional Instructions: To drain clean and dry Use your walker with any sort of ambulation Your thyroid level is low and you will need it recheck recommend calling your doctor tomorrow and decreasing your dose of synthroid return earlier with new or worsening complaints Referrals: [facility] 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 [Primary Care Provider] - 1 day Jhoan Daley MD [ [facility] STAFF PHYSICIAN] - Discharge Data Discharge Date/Time-TO BE ENTERED AT DEPARTURE: 08/08/22 16:17 Medical Decision Making Patient appears well, she is ambulatory at her baseline Her CT head and cervical spine do not show evidence of acute abnormality and her labs are baseline for her Do not see any acute abnormality aside from hypothyroidism and Splint to her right third digit and Dermabond was applied over patient's laceration which is not actively bleeding and well approximated over right eyebrow Encouraged to follow-up with PCP regarding hyperthyroidism and will give her dose of Synthroid Return precautions reviewed and patient has expressed understanding Medical Records Medical records reviewed: Yes I reviewed the patient's medical records. Lab Data Lab results reviewed: Yes I reviewed the patient's lab results. ECG Data Prior ECG tracings: available for review Sign Out No HPI General Date/Time Provider Initiated Documentation: 08/08/22 11:12. HPI Narrative: This 61-year-old female presents with report of right orbital pain after falling in the middle night. She has had more frequent falls. She states she can intermittently lightheaded and have a history of lupus. She denies any new medications. She denies anticoagulation. She denies loss of consciousness. She has a mild headache she denies any neck pain. She denies any vision change. She has been able to ambulate with walker since the event occurred. She takes prednisone daily but denies any additional immunosuppressive. She denies any urinary complaints. She denies any illicit drug use or difficulty swallowing. Has been eating and drinking within normal limits for patient. Related Data Home Medications Medication Instructions Recorded Confirmed ascorbate calcium (vitamin C) 500 1 tab PO DAILY 01/18/13 08/08/22 mg tablet calcium carbonate 600 mg-vitamin 1 tab PO DAILY 01/18/13 08/08/22 D3 20 mcg (800 unit) tablet (Caltrate with Vitamin D3) ibuprofen 200 mg tablet (Motrin IB) 3 - 4 tab PO QPM 01/18/13 08/08/22 multivitamin 1 cap PO DAILY 01/18/13 08/08/22 nystatin 100,000 unit/gram topical 1 applic topical BID Intertrigo 09/10/18 08/08/22 powder #60 grams blood sugar diagnostic (Embrace #100 ea 01/08/21 06/27/22 TALK test strips) blood-glucose meter (Embrace TALK #1 ea 01/08/21 06/27/22 Glucose Monitor) lancets #100 ea 01/08/21 06/27/22 trazodone 50 mg tablet 150 mg PO HS #270 tab-caps 02/13/22 08/08/22 nortriptyline 75 mg capsule 75 mg PO HS #90 tab-caps 03/20/22 08/08/22 prednisone 5 mg tablet 2.5 mg PO DAILY #45 tab-caps 03/28/22 08/08/22 atenolol 50 mg tablet 75 mg PO DAILY #135 tab-caps 04/29/22 08/08/22 triamcinolone acetonide 0.5 % 1 applic topical BID #15 grams 05/30/22 08/08/22 topical cream omeprazole 40 mg capsule,delayed 40 mg PO DAILY #90 tab-caps 06/11/22 08/08/22 release rosuvastatin 5 mg tablet 5 mg PO HS #90 tabs 06/11/22 08/08/22 diphenhydramine HCl 25 mg capsule 25 mg PO TID 06/27/22 08/08/22 (Benadryl) duloxetine 60 mg capsule,delayed 60 mg PO DAILY #90 caps 07/10/22 08/08/22 release lorazepam 2 mg tablet 2 mg PO DAILY #28 tabs 07/23/22 08/08/22 gabapentin 300 mg capsule 900 mg PO TID #270 caps 08/07/22 08/08/22 levothyroxine 112 mcg tablet 112 mcg PO DAILY #90 tabs 08/09/22 Previous Rx's Medication Instructions Recorded nystatin 100,000 unit/gram topical 1 applic topical BID Intertrigo 09/10/18 powder #60 grams blood sugar diagnostic (Embrace #100 ea 01/08/21 TALK test strips) blood-glucose meter (Embrace TALK #1 ea 01/08/21 Glucose Monitor) lancets #100 ea 01/08/21 trazodone 50 mg tablet 150 mg PO HS #270 tab-caps 02/13/22 nortriptyline 75 mg capsule 75 mg PO HS #90 tab-caps 03/20/22 prednisone 5 mg tablet 2.5 mg PO DAILY #45 tab-caps 03/28/22 atenolol 50 mg tablet 75 mg PO DAILY #135 tab-caps 04/29/22 triamcinolone acetonide 0.5 % 1 applic topical BID #15 grams 05/30/22 topical cream omeprazole 40 mg capsule,delayed 40 mg PO DAILY #90 tab-caps 06/11/22 release rosuvastatin 5 mg tablet 5 mg PO HS #90 tabs 06/11/22 duloxetine 60 mg capsule,delayed 60 mg PO DAILY #90 caps 07/10/22 release lorazepam 2 mg tablet 2 mg PO DAILY #28 tabs 07/23/22 gabapentin 300 mg capsule 900 mg PO TID #270 caps 08/07/22 levothyroxine 112 mcg tablet 112 mcg PO DAILY #90 tabs 08/09/22 Allergies Allergy/AdvReac Type Severity Reaction Status Date / Time Iodinated Contrast Media Allergy Unknown Verified 08/08/22 11:15 [Iodinated Contrast- Oral and IV Dye] albuterol AdvReac Intermediate Chest Verified 08/08/22 11:15 heaviness and cough General Stated Complaint: HeadInjury CHRISTOPHER: 3 Review of Systems All systems reviewed & are unremarkable except as noted in HPI and below PFSH All Active Problems (Updated 08/08/22 @ 14:13 by SYED Jones) Head injury (Acute) Eyebrow laceration (Acute) Hyperthyroidism (Chronic) Chronic pain syndrome (Chronic) Generalized weakness (Acute) Insomnia (Acute) Nighttime regimen including lorazepam, trazodone and nortriptyline as of 08/2021 Atypical chest pain (Acute) 2019-negative NPi at [facility], normal EKG 08/2021 Elevated glucose (Acute) Hyperlipidemia (Acute) Lupus (Acute) Right knee DJD (Acute) IBS (irritable bowel syndrome) (Chronic) Refusal of blood transfusions as patient is Religion (Chronic 09/05/17) Peripheral neuralgia (Chronic) Neutropenic disorder (Chronic) Neuropathy (Chronic) Hypothyroidism (Chronic) Heart murmur (Chronic) HX of pericardial effusion 2010-echo showed normal cardiac function, EF of 70%, 2+ aortic insufficiency` Gastroesophageal reflux disease without esophagitis (Chronic 09/24/16) Discoid lupus erythematosus (Chronic) Chronic pain syndrome (Chronic 05/07/12) 04/11/11; NARCOTIC CONTARCT 06/19/16 CONTRACT DISCONTINUED-NO LONGER NEEDED PER [facility] B12 deficiency anemia (Chronic) Stenosis of aortic valve (Chronic) Medical History (Updated 08/08/22 @ 14:13 by SYED Jones) Fibromyalgia Rheumatoid arthritis Surgical History Biopsy of breast (~1996) History of hysterectomy Hysterectomy, Laproscopic Status post breast biopsy Status post laparoscopic hysterectomy Family History Mother Heart disease Father Essential hypertension Heart disease Stroke Brother Depression Social History Smoking/Tobacco Use Status: Never Second Hand Exposure: Yes Smoking risk assessment performed?: Yes Alcohol Intake: current Alcohol Intake frequency: holidays/special occasions only Drug use: Never Substance use type: does not use Caregiver/Support person: Yes Household members: spouse and children Communication Needs: None Pets and animals: No Sexually active: No Current gender identity: female What is your relationship status?: How often do you talk on the phone with friends or family?: twice per week How often do you get together with friends or relatives?: decline to answer Do you belong to any clubs or organized social groups?: no Panel score (0-1 are the most socially isolated patients): 1 Renate/Buddhist: Religion Special renate needs: Yes Agree to transfusion: No Seatbelt use: always Drive intox or ride w/intox 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 Periorbital eczema , Extraocular muscles intact, no proptosis Mouth: oral mucosae normal Eyes Pupils: PERRL Neck Other: No midline tenderness Resp Effort & Inspection: normal respiratory effort Auscultation: clear to auscultation bilaterally Cardio Rate: regular rate Rhythm: regular rhythm GI Inspection: normal to inspection Other: No abdominal or flank tenderness Skin General skin exam: no rashes or lesions noted Neuro General: patient alert and patient oriented x3 Cranial Nerves: CN's II-XI intact bilaterally and tongue midline Cognition: normal cognition Speech: speech normal Gait: normal gait Motor: strength 5/5 throughout Sensory Exam: no sensory deficits noted Extrem Other: Right middle finger tenderness and swelling, ecchymosis, neurovascularly intact Course Vital Signs Vital signs: Vital Signs Temperature 36.6 C 08/08/22 11:10 Pulse 89 08/08/22 11:10 Respiratory Rate 17 08/08/22 11:10 Blood Pressure 133/82 08/08/22 11:10 Pulse Oximetry 97 08/08/22 11:10 Temperature 36.6 C 08/08/22 11:10 Temperature Source Temporal Artery Scan 08/08/22 11:10 Pulse 89 08/08/22 11:10 Respiratory Rate 17 08/08/22 11:10 Respiratory Effort Non-Labored 08/08/22 11:21 Respiratory Depth Normal 08/08/22 11:21 Respiratory Pattern Normal 08/08/22 11:21 Blood Pressure 133/82 08/08/22 11:10 Blood Pressure Position Sitting 08/08/22 11:10 Pulse Oximetry 97 08/08/22 11:10 Oxygen Delivery Method Room Air 08/08/22 11:10 Oxygen Flow Rate 0 08/08/22 11:10 Pain Level 4 08/08/22 11:21 Comment 08/08/22 11:10 Lab/Test Results Lab/Test Results: Laboratory Tests Range/Units 08/08/22 08/08/22 08/08/22 12:30 12:59 12:59 WBC (4.4-10.8) 10^3/uL 2.88 L RBC (3.93-5.22) 10^6/uL 3.73 L Hgb (11.2-15.7) g/dL 12.0 Hct (36.0-46.0) % 35.3 L MCV (80-95) fL 95 MCH (27.0-33.0) pg 32.2 MCHC (32.0-36.0) % 34.0 RDW (11.7-14.6) % 12.5 Plt Count (130-400) 10^3/uL 264 MPV (8.0-11.0) fL 10.1 Immature Gran % 0.3 Neutrophils % 46.3 Lymphocytes % 30.6 Monocytes % 20.1 Eosinophils % 1.0 Basophils % 1.7 Nucleated RBC % (0.0-0.3) % 0.0 Absolute Neutrophils (1.2-6.7) 10^3/uL 1.33 Absolute Lymphocytes (1.2-3.4) 10^3/uL 0.88 L Absolute Monocytes (0.1-0.8) 10^3/uL 0.58 Absolute Eosinophils (0.0-0.7) 10^3/uL 0.03 Absolute Basophils (0.0-0.2) 10^3/uL 0.05 Sodium (136-145) mmol/L 142 Potassium (3.5-5.1) mmol/L 3.7 Chloride (98-107) mmol/L 104 Carbon Dioxide (21.0-32.0) mmol/L 31.1 Anion Gap (3-11) mmol/L 6.9 BUN (7-18) mg/dL 11 Creatinine (0.55-1.02) mg/dL 1.0 Est GFR (CKD-EPI 2020) (mL/min/1.73m2) 64.09 Glucose (74-106) mg/dL 92 Calcium (8.5-10.1) mg/dL 9.1 Magnesium (1.8-2.4) mg/dL 2.0 Total Bilirubin (0.2-1.0) mg/dL 0.3 AST (15-37) U/L 25 ALT (14-59) U/L 36 Alkaline Phosphatase (46-116) U/L 95 Troponin I (<or=60) ng/L < 50 Total Protein (6.4-8.2) g/dL 8.4 H Albumin (3.4-5.0) g/dL 3.9 Lipase (73-393) U/L 41 TSH (0.36-3.74) uIU/mL 0.05 L Free T4 (0.76-1.46) ng/dL 1.23 Urine Color (Yellow) Yellow Urine Clarity (Clear) Clear Urine pH (5-8) 6.0 Ur Specific Gary (1.005-1.025) 1.010 Urine Protein (Negative) mg/dL Negative Urine Ketones (Negative) mg/dL Negative Urine Blood (Negative) Negative Urine Nitrite (Negative) Negative Urine Bilirubin (Negative) Negative Urine Urobilinogen (Up TO 0.2) EU/dL 0.2 Ur Leukocyte Esterase (Negative) Negative Urine Glucose (Negative) mg/dL Negative
== END 2022-08-08 16:17 | disposition home or self-care (01) ==
PROVIDERS: Emergency Provider Physician Assistant; PCP Nurse Practitioner Family
DX: S01.111A Laceration without foreign body of right eyelid and periocular area, initial encounter (principal); S60.031A Contusion of right middle finger without damage to nail, initial encounter; E03.9 Hypothyroidism, unspecified; M32.9 Systemic lupus erythematosus, unspecified; W19.XXXA Unspecified fall, initial encounter
CPT/HCPCS: 12011; 29130; 36415; 80053; 83690; 93005; 99284; 70450; 70486; 71046; 72125; 73140; 81003; 83735; 84439; 84443; 84484; 85025; 93010; 99285

== ENCOUNTER 2023-05-12 14:12 | Emergency (ER) | payer MEDICAID, SELFPAY ==
[2023-05-12 14:20] VITALS: BP 138/73; PULSE 81; RESP 20; TEMP 37; O2SAT 99
--- NOTE | 2023-05-12 14:25 | ED.GENADUL_ITS ---
Discharge Plan Disposition Patient Disposition: Home Discharge Details Clinical Impression: Traumatic ecchymosis of toe of left foot Primary Care Provider: [facility] ED Provider: Wyatt Carter Meds and New Rx's Prescriptions: Continued nystatin 100,000 unit/gram powder 1 applic TP BID Qty: 60 3RF ascorbate calcium (vitamin C) 500 MG tablet 1 tab PO DAILY calcium carbonate-vitamin D3 [Caltrate with Vitamin D3] 1 EACH tablet 1 tab PO DAILY ibuprofen [Motrin IB] 200 MG tablet 3 - 4 tab PO QPM multivitamin 1 EACH capsule 1 cap PO DAILY (DME) blood-glucose meter [Embrace TALK Glucose Monitor] Misc See Rx Instructions .ROUTE .MEDSUPPLY Qty: 1 0RF Rx Instructions: Once daily (DME) lancets Misc See Rx Instructions .ROUTE .MEDSUPPLY Qty: 100 0RF Rx Instructions: Once daily (DME) Embrace TALK test strips Strip See Rx Instructions .ROUTE .MEDSUPPLY Qty: 100 8RF Rx Instructions: Once daily triamcinolone acetonide 0.5 % cream 1 applic topical BID Qty: 15 0RF omeprazole 40 mg capsule,delayed release(DR/EC) 40 mg PO DAILY Qty: 90 4RF rosuvastatin 5 mg tablet 5 mg PO HS Qty: 90 4RF diphenhydramine HCl [Benadryl] 25 mg capsule 25 mg PO TID gabapentin 400 mg capsule 800 mg PO TID Qty: 540 3RF trazodone 50 mg tablet 150 mg PO HS Qty: 270 3RF levothyroxine 112 mcg tablet 112 mcg PO DAILY Qty: 90 3RF prednisone 5 mg tablet 2.5 mg PO DAILY Qty: 45 3RF lorazepam 2 mg tablet 2 mg PO DAILY Qty: 28 2RF duloxetine 60 mg capsule,delayed release(DR/EC) 60 mg PO DAILY Qty: 90 3RF atenolol 50 mg tablet 75 mg PO DAILY Qty: 135 3RF nortriptyline 75 mg capsule 75 mg PO HS Qty: 90 3RF Discharge Instructions Instructions: Foot Contusion (ED) Additional Instructions: Please read all of the information that accompanies these instructions. You were seen in the emergency department for your foot pain. Your x-ray showed no sign of any fractures. A referral has been placed for the podiatry team to call you for outpatient follow-up. Please schedule an appointment with your primary care provider later this week. Please return to the emergency department if develop worsening pain decreased range of motion in your foot or if you have any other concerns. Please wear this walking boot and bear weight as you are able to tolerate. For your pain please take medications as follows: 1. Take acetaminophen (Tylenol), 1,000 mg (two 500 mg tabs) every 6 hours Discharge Data Discharge Date/Time-TO BE ENTERED AT DEPARTURE: 05/12/23 15:43 Medical Decision Making This is an overall very well-appearing normothermic and not tachycardic 62-year-old female with right great toe traumatic ecchymosis but no acute osseous abnormalities on plain films. No pain out of proportion to suggest necrotizing soft tissue infection. No midfoot instability to suggest Lisfranc injury. No lateral foot tenderness to suggest Dean fracture. No history of axial loading to suggest increased risk for talar fracture. No fluctuance to suggest abscess. Given no significant erythema my suspicion for cellulitis is exceedingly low and I feel that the risks of antibiotics outweigh the benefits. Patient has been able to bear weight but is in a soft soled shoe. I placed patient in a hard soled walking boot and made her weightbearing as tolerated.No open sores nor ulcerated areas to suggest arterial or venous ulcers. Foot warm and well-perfused so not concern for critical limb ischemia so I do not feel th at the patient requires a CT angiogram to assess for arterial stenoses. We will proceed with empiric trial of expectant outpatient management. I have asked health loading unit operator crimping Cherie to have the patient seen within the next week by podiatry given her neuropathy. HPI General Date/Time Provider Initiated Documentation: 05/12/23 14:24 . HPI Narrative: This is a 62-year-old female with history of peripheral neuropathy arriving to the emergency department following a fall. Patient reports that she tripped 2 nights ago. She has noticed some redness pain and swelling as result of her symptoms. She has history of prediabetes. She also has a history of lupus. She is not on insulin. She did not hit her head. She has not been nauseous or vomiting. She denies chest pain shortness of breath dysuria and frequency. Related Data Home Medications Medication Instructions Recorded Confirmed ascorbate calcium (vitamin C) 500 1 tab PO DAILY 01/18/13 05/12/23 mg tablet calcium carbonate 600 mg-vitamin 1 tab PO DAILY 01/18/13 05/12/23 D3 20 mcg (800 unit) tablet (Caltrate with Vitamin D3) ibuprofen 200 mg tablet (Motrin IB) 3 - 4 tab PO QPM 01/18/13 05/12/23 multivitamin 1 cap PO DAILY 01/18/13 05/12/23 nystatin 100,000 unit/gram topical 1 applic topical BID Intertrigo 09/10/18 05/12/23 powder #60 grams blood sugar diagnostic (Embrace #100 ea 01/08/21 11/13/22 TALK test strips) blood-glucose meter (Embrace TALK #1 ea 01/08/21 11/13/22 Glucose Monitor) lancets #100 ea 01/08/21 11/13/22 triamcinolone acetonide 0.5 % 1 applic topical BID #15 grams 05/30/22 05/12/23 topical cream omeprazole 40 mg capsule,delayed 40 mg PO DAILY #90 tab-caps 06/11/22 05/12/23 release rosuvastatin 5 mg tablet 5 mg PO HS #90 tabs 06/11/22 05/12/23 diphenhydramine HCl 25 mg capsule 25 mg PO TID 06/27/22 05/12/23 (Benadryl) gabapentin 400 mg capsule 800 mg PO TID #540 caps 09/09/22 05/12/23 levothyroxine 112 mcg tablet 112 mcg PO DAILY #90 tabs 11/14/22 05/12/23 trazodone 50 mg tablet 150 mg PO HS #270 tab-caps 11/14/22 05/12/23 prednisone 5 mg tablet 2.5 mg PO DAILY #45 tab-caps 03/03/23 05/12/23 lorazepam 2 mg tablet 2 mg PO DAILY #28 tabs 03/10/23 05/12/23 atenolol 50 mg tablet 75 mg PO DAILY #135 tab-caps 03/20/23 05/12/23 duloxetine 60 mg capsule,delayed 60 mg PO DAILY #90 caps 03/20/23 05/12/23 release nortriptyline 75 mg capsule 75 mg PO HS #90 tab-caps 05/05/23 05/12/23 Previous Rx's Medication Instructions Recorded nystatin 100,000 unit/gram topical 1 applic topical BID Intertrigo 09/10/18 powder #60 grams blood sugar diagnostic (Embrace #100 ea 01/08/21 TALK test strips) blood-glucose meter (Embrace TALK #1 ea 01/08/21 Glucose Monitor) lancets #100 ea 01/08/21 triamcinolone acetonide 0.5 % 1 applic topical BID #15 grams 05/30/22 topical cream omeprazole 40 mg capsule,delayed 40 mg PO DAILY #90 tab-caps 06/11/22 release rosuvastatin 5 mg tablet 5 mg PO HS #90 tabs 06/11/22 gabapentin 400 mg capsule 800 mg PO TID #540 caps 09/09/22 levothyroxine 112 mcg tablet 112 mcg PO DAILY #90 tabs 11/14/22 trazodone 50 mg tablet 150 mg PO HS #270 tab-caps 11/14/22 prednisone 5 mg tablet 2.5 mg PO DAILY #45 tab-caps 03/03/23 lorazepam 2 mg tablet 2 mg PO DAILY #28 tabs 03/10/23 atenolol 50 mg tablet 75 mg PO DAILY #135 tab-caps 03/20/23 duloxetine 60 mg capsule,delayed 60 mg PO DAILY #90 caps 03/20/23 release nortriptyline 75 mg capsule 75 mg PO HS #90 tab-caps 05/05/23 Allergies Allergy/AdvReac Type Severity Reaction Status Date / Time Iodinated Contrast Media Allergy Unknown Verified 05/12/23 14:26 [Iodinated Contrast- Oral and IV Dye] albuterol AdvReac Intermediate Chest Verified 05/12/23 14:26 heaviness and cough General CHRISTOPHER: 3 PFSH All Active Problems (Updated 05/12/23 @ 15:28 by Wyatt Carter MD) Traumatic ecchymosis of toe of left foot (Acute) Chronic pain syndrome (Chronic) Generalized weakness (Acute) Insomnia (Acute) Nighttime regimen including lorazepam, trazodone and nortriptyline as of 08/2021 Atypical chest pain (Acute) 2019-negative NPi at [facility], normal EKG 08/2021 Elevated glucose (Acute) Hyperlipidemia (Acute) Lupus (Acute) Right knee DJD (Acute) IBS (irritable bowel syndrome) (Chronic) 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/17) Peripheral neuralgia (Chronic) Neutropenic disorder (Chronic) Neuropathy (Chronic) Hypothyroidism (Chronic) Heart murmur (Chronic) HX of pericardial effusion 2010-echo showed normal cardiac function, EF of 70%, 2+ aortic insufficiency` Gastroesophageal reflux disease without esophagitis (Chronic 09/24/16) Discoid lupus erythematosus (Chronic) Chronic pain syndrome (Chronic 05/07/12) 04/11/11; NARCOTIC CONTARCT 06/19/16 CONTRACT DISCONTINUED-NO LONGER NEEDED PER [facility] B12 deficiency anemia (Chronic) Stenosis of aortic valve (Chronic) Medical History (Updated 05/12/23 @ 15:28 by Wyatt Carter MD) Fibromyalgia Rheumatoid arthritis Surgical History Biopsy of breast (~1996) History of hysterectomy Hysterectomy, Laproscopic Status post breast biopsy Status post laparoscopic hysterectomy Family History Mother Heart disease Father Essential hypertension Heart disease Stroke Brother Depression Social History Smoking/Tobacco Use Status: Never Second Hand Exposure: Yes Smoking risk assessment performed?: Yes Alcohol Intake: current Alcohol Intake frequency: holidays/special occasions only Drug use: Never Substance use type: does not use Caregiver/Support person: Yes Household members: spouse and children Communication Needs: None Pets and animals: No Sexually active: No Current gender identity: female What is your relationship status?: How often do you talk on the phone with friends or family?: twice per week How often do you get together with friends or relatives?: decline to answer Do you belong to any clubs or organized social groups?: no Panel score (0-1 are the most socially isolated patients): 1 Renate/Orthodox: Voodoo Special renate needs: Yes Agree to transfusion: No Seatbelt use: always Drive intox or ride w/intox truck driver instructor: No Do you feel safe in your relationship?: Yes Exam Narrative Exam Narrative: General: Well-appearing in no acute distress speaking in complete sentences. Head: Normocephalic, atraumatic. Eye: Extraocular eye movements intact. No conjunctival injection. No scleral icterus. Ear, nose, mouth, throat: Grossly normal inspection. Normal voice, handling secretions normally. Neck: Trachea midline. Cardiovascular: Well-perfused distal extremities. Respiratory: Nonlabored respiration. Gastrointestinal: Nondistended abdomen. Musculoskeletal: On the medial side of the patient's right foot at the base of the right great toe there is a small approximately 1 cm ecchymotic area. Patient has mild tenderness with palpation but no tenderness on flexion and extension both passively and actively of her left great toe. Patient does have decreased sensation throughout her entire forefoot. She has 2+ PT and DP pulses in her right foot. Cap refill less than 2 seconds in her right toes. No midfoot instability. No right lateral foot tenderness. No calcaneal tenderness. No ankle tenderness. Approximately the patient's right tibia there are several well-healing scratch hodgson. Skin: Normal for age and race, grossly normal temperature and turgor. No acute rash. Neurologic: Alert and appropriate, no apparent acute deficits. Psychiatric: Mood and manner are appropriate. Grooming and personal hygiene are appropriate.
--- NOTE | 2023-05-12 14:53 | DI.RAD_ITS ---
Exam(s) XR FOOT RT COMPLETE EXAM: XR FOOT RT COMPLETE CLINICAL HISTORY: unknown injury. TECHNIQUE: 2D digital imaging was performed of the right foot. Three images were obtained. AP, obl ique and lateral views were obtained. COMPARISON: No exams were available for comparison FINDINGS: BONES: No acute fracture is present. No bony destructive lesion is seen. There appears to be a multip artite accessory bone adjacent to the cuboid. JOINTS: No dislocation present. SOFT TISSUE: Normal. IMPRESSION: 1. No acute fracture or dislocation is seen. 2. Findings were discussed with Dr. Carter at 3:20 p.m. on 05/12/2023. DATA REPOSITORY: RADIATION DOSE DELIVERED:
--- NOTE | 2023-05-12 16:28 | NUR.NOTE ---
pt referral to podiatry next 2 weeks Nursing Note:
--- NOTE | 2023-05-13 07:19 | NUR.NOTE ---
Accessed patient chart to print provider note to be faxed to [facility] for billing purposes.Nursing Note:
== END 2023-05-12 15:43 | disposition home or self-care (01) ==
PROVIDERS: Emergency Provider Emergency Medicine; PCP Nurse Practitioner Family
DX: S90.111A Contusion of right great toe without damage to nail, initial encounter (principal); W01.0XXA Fall on same level from slipping, tripping and stumbling without subsequent striking against object, initial encounter; Y93.01 Activity, walking, marching and hiking; Y92.89 Other specified places as the place of occurrence of the external cause; Y99.9 Unspecified external cause status; R73.03 Prediabetes; M32.9 Systemic lupus erythematosus, unspecified
CPT/HCPCS: 99283; 73630

== ENCOUNTER 2023-05-19 15:21 | Outpatient (REF) | payer MEDICAID, SELFPAY | END 2023-05-19 15:22 | disposition home or self-care (01) | LOC: LBN 15:21 | PROVIDERS: PCP Nurse Practitioner Family; Visit Provider Podiatrist | DX: L02.611 Cutaneous abscess of right foot (principal); L97.512 Non-pressure chronic ulcer of other part of right foot with fat layer exposed; L03.115 Cellulitis of right lower limb | CPT/HCPCS: 87070; 87075; 87205 ==

== ENCOUNTER → 2023-05-22 00:21 | Outpatient (CLI) | payer MEDICAID, SELFPAY ==
--- NOTE | 2023-05-22 08:45 | DI.RAD_ITS ---
Exam(s) XR FOOT RT COMPLETE EXAM: XR FOOT RT COMPLETE CLINICAL HISTORY: Rule out foreign body/gas, ABSCESS RT FOOT, ULCER, CELLULITIS. TECHNIQUE: 2D digital imaging was performed of the right foot. Three images were obtained. AP, obl ique and lateral views were obtained. COMPARISON: CR XR FOOT RT COMPLETE from 05/12/2023 FINDINGS: BONES: No acute fracture is present. No bony destructive lesion is seen. There is a small plantar mary caneal spur. JOINTS: No dislocation present. SOFT TISSUE: There appears to be a small soft tissue defect on the plantar surface of the foot at the level of the metatarsophalangeal joints which may represent a small ulcer. No gas or radiopaque fore ign body is identified. IMPRESSION: No radiopaque foreign body or soft tissue gas. DATA REPOSITORY: RADIATION DOSE DELIVERED:
== END ==
PROVIDERS: PCP Nurse Practitioner Family; Visit Provider Podiatrist
DX: L02.611 Cutaneous abscess of right foot
CPT/HCPCS: 73630

== ENCOUNTER → 2023-06-06 00:42 | Outpatient (CLI) | payer MEDICAID, SELFPAY ==
--- NOTE | 2023-06-06 08:45 | DI.MRI_ITS ---
Exam(s) MR LOWER EXTREMITY RT WO EXAM: MR LOWER EXTREMITY RT WO CLINICAL HISTORY: Right 1st MPJ cellulitis/ulcer/possible abscess,l02.611 TECHNIQUE: Multiplanar multisequence MRI was performed without intravenous contrast. COMPARISON: CR XR FOOT RT COMPLETE from 05/22/2023 FINDINGS: Marker was placed on the plantar surface of the foot at the 1st metatarsophalangeal joint level. BONES/JOINTS: No fracture or contusion pattern. No bone lesions identified. No MRI findings to sugges t osteomyelitis. There is normal signal seen in the great toe, sesamoids and 1st metatarsal bone. MUSCULOTENDINOUS STRUCTURES: The muscles show normal signal and size. No muscular fatty atrophy. SOFT TISSUES: No evidence of abscess or other focal fluid collection. OTHER FINDINGS: None. IMPRESSION: No evidence of abscess or osteomyelitis. DATA REPOSITORY:
== END ==
PROVIDERS: PCP Nurse Practitioner Family; Visit Provider Podiatrist
DX: L02.611 Cutaneous abscess of right foot (principal)
CPT/HCPCS: 73718

== ENCOUNTER → 2024-02-19 03:04 | Outpatient (CLI) | payer MEDICAID, SELFPAY ==
--- NOTE | 2024-02-19 07:45 | DI.RAD_ITS ---
Exam(s) XR FOOT LT COMPLETE EXAM: XR FOOT LT COMPLETE CLINICAL HISTORY: Lateral left foot pain, M79.672. TECHNIQUE: 2D digital imaging was performed. Three views. COMPARISON: MR MR LOWER EXTREMITY RT WO from 06/06/2023 FINDINGS: BONES: No acute fracture is present. No bony destructive lesion is seen. Plantar calcaneal spur. Oss icle adjacent to cuboid. Adjacent spur at the cuboid. Mild 1st metatarsal varus. Minimal degenerat robin changes of 1st MTP joint. JOINTS: No dislocation present. Joint spaces are maintained. Plantar arch is maintained. SOFT TISSUE: Normal. IMPRESSION: No acute abnormality. DATA REPOSITORY: RADIATION DOSE DELIVERED:
== END ==
PROVIDERS: PCP Nurse Practitioner Family; Visit Provider Podiatrist
DX: M79.672 Pain in left foot (principal)
CPT/HCPCS: 73630

== ENCOUNTER → 2024-03-03 00:50 | Outpatient (CLI) | payer MEDICAID, SELFPAY ==
--- NOTE | 2024-03-03 10:49 | DI.RAD_ITS ---
Exam(s) XR FOOT LT COMPLETE EXAM: XR FOOT LT COMPLETE CLINICAL HISTORY: Fracture?, pain lt foot, M79.672. TECHNIQUE: 2D digital imaging was performed. COMPARISON: CR XR FOOT LT COMPLETE from 02/19/2024 FINDINGS: 3 views No evidence of fracture or diastasis of the Lisfranc joint. Mild hallux valgus again noted. There i s a moderate size inferior calcaneal spur again noted as well as a small enthesophyte on the posterio r calcaneus Achilles insertion site. Bone density normal. No osseous lesions. No erosions. IMPRESSION: As above. No significant change compared to 02/19/2024. DATA REPOSITORY: RADIATION DOSE DELIVERED:
== END ==
PROVIDERS: Visit Provider Podiatrist
DX: M79.672 Pain in left foot (principal)
CPT/HCPCS: 73630

== ENCOUNTER → 2024-03-19 00:19 | Outpatient (CLI) | payer MEDICAID, SELFPAY ==
--- NOTE | 2024-03-19 13:23 | DI.RAD_ITS ---
Exam(s) XR FOOT LT COMPLETE EXAM: XR FOOT LT COMPLETE CLINICAL HISTORY: Left fifth metatarsal pain,stress fx lt foot,m84.375a,m77.42. TECHNIQUE: 2D digital imaging was performed of the left foot. Three images were obtained. AP, obli que and lateral views were obtained. COMPARISON: CR XR FOOT LT COMPLETE from 03/03/2024 FINDINGS: BONES: No acute fracture is present. No bony destructive lesion is seen. There is a small enthesophyt e at the posterior calcaneus. There is a small spur at the plantar surface of the calcaneus. JOINTS: No dislocation present. SOFT TISSUE: Normal. IMPRESSION: No findings to suggest an acute or healing fracture. DATA REPOSITORY: RADIATION DOSE DELIVERED:
== END ==
PROVIDERS: Visit Provider Podiatrist
DX: M77.42 Metatarsalgia, left foot (principal); M84.375A Stress fracture, left foot, initial encounter for fracture
CPT/HCPCS: 73630

== ENCOUNTER 2024-03-19 13:02 | Outpatient (CLI) | payer MEDICAID, SELFPAY ==
[2024-03-19 13:53] LABS: Abs Immature Grans 0.01 10^3/uL (0.0-0.06); Absolute Basophil Count 0.06 10^3/uL (0.0-0.2); Absolute Eosinophil Count 0.03 10^3/uL (0.0-0.7); Absolute Lymphocyte Count 0.99 10^3/uL (1.2-3.4); Absolute Monocyte Count 0.51 10^3/uL (0.1-0.8); Absolute Neutrophil Count 1.41 10^3/uL (1.2-6.7); HCT 36.6 % (36.0-46.0); HGB 12.3 g/dL (11.2-15.7); Immature Grans % 0.3 %; Lymphocytes % 32.9 %; MCH 31.6 pg (27.0-33.0); MCHC 33.6 % (32.0-36.0); MCV 94 fL (80-95); MPV 9.9 fL (8.0-11.0); Monocytes % 16.9 %; Neutrophils % 46.9 %; Platelet Count 239 10^3/uL (130-400); RBC 3.89 10^6/uL (3.93-5.22); RDW-SD 44.9 fL; WBC 3.01 10^3/uL (4.4-10.8)
[2024-03-19 13:58] LABS: ESR 13 mm/hr (0-30)
[2024-03-19 14:45] LABS: ALT 48 U/L (14-59); AST 32 U/L (15-37); Albumin 3.8 g/dL (3.4-5.0); Alkaline Phosphatase 89 U/L (46-116); Anion Gap 8.3 mmol/L (3-11); BUN 9 mg/dL (7-18); Bilirubin, Total 0.56 mg/dL (0.2-1.0); CO2 30.7 mmol/L (21.0-32.0); Calcium 9.3 mg/dL (8.5-10.1); Calculated LDL 56 mg/dL (<100); Chloride 103 mmol/L (98-107); Cholesterol 133 mg/dL (<200); Glucose 90 mg/dL (74-106); HDL Cholesterol 55 mg/dL (40-60); Potassium 4.4 mmol/L (3.5-5.1); Sodium 142 mmol/L (136-145); TSH (W/Ref FT4) 0.66 uIU/mL (0.36-3.74); Total Protein 8.2 g/dL (6.4-8.2); Triglyceride 114 mg/dL (<150); Vitamin B12 786 pg/mL (193-986); Vitamin D 25 Total 38.7 ng/mL (30-100)
== END 2024-03-19 13:03 | disposition home or self-care (01) ==
LOC: LBO 13:02
PROVIDERS: Visit Provider Nurse Practitioner Family
DX: I10 Essential (primary) hypertension (principal); E78.5 Hyperlipidemia, unspecified; E55.9 Vitamin D deficiency, unspecified; D51.3 Other dietary vitamin B12 deficiency anemia
CPT/HCPCS: 36415; 80053; 80061; 82306; 85652; 82607; 84443; 85025

== ENCOUNTER 2024-05-10 13:34 | Outpatient (REF) | payer MEDICAID, SELFPAY ==
--- NOTE | 2024-05-10 13:30 | SKI_PTH ---
PATIENT: Cale Charlton LOC: [facility] U#:[id number] AGE/SX: 63/F ROOM: RE05/10/[address]: Rachael Brito : 1960 BED: DIS: 05/10/2024 SPEC #: [id number] RECD: 05/10/24 15:46 STATUS: KELECHI REMary Ann #: [id number] PILAR: 05/10/24 13:[address]: Rachael Brito DEPT: Surgical Specimen RECD BY: Romelia Arriaga Tissues: 1 - SKIN BIOPSY(SHAVE/PUNCH) Procedures: SKIN LEVEL 4 Comments: [id number]
== END 2024-05-10 13:35 | disposition home or self-care (01) ==
LOC: LBN 13:34
PROVIDERS: PCP Nurse Practitioner Family; Visit Provider Nurse Practitioner Family
DX: D22.9 Melanocytic nevi, unspecified (principal)
CPT/HCPCS: 88305

== ENCOUNTER 2024-07-06 01:41 | Outpatient (CLI) | payer MEDICAID, SELFPAY ==
--- NOTE | 2024-07-06 | DI.CT_ITS ---
Exam(s) CT LUMBAR SPINE WO EXAM: CT LUMBAR SPINE WO CLINICAL HISTORY: SOFT TISSUE SWELLING OF LOW BACK, S/P FALL. TECHNIQUE: Imaging Protocol: Axial computed tomography images with coronal and sagittal reformatted images were created and reviewed. COMPARISON: No exams were available for comparison FINDINGS: Bones: No fractures or dislocations are seen. The alignment of the spine is normal including the thor acolumbar junction. There are degenerative changes seen in the lumbar spine particularly at L3-4 and L4-L5. Facet arthropathy is seen in the lower lumbar spine. The findings do result in mild narrowi ng of the neural foramen at L4-5 and L5-S1 bilaterally. Soft tissues: There is colonic diverticulosis without evidence of acute diverticulitis. No large dis k herniations are identified. IMPRESSION: 1. No acute fracture or subluxation in the lumbar spine. 2. Multilevel degenerative changes in the lumbar spine as described. RADIATION DOSE DELIVERED: 994.12mGy.cm Total DLP 994.12mGy.cm Total DLP DATA REPOSITORY: All CT scans at this facility are submitted to the National Radiology Data Registry (NRDR) Dose Index Registry (DIR) with the [employer] (ACR). RADIATION OPTIMIZATION: All CT scans at this facility use at least one of these dose optimization te chniques: automated exposure control; mA and/or kV adjustment per patient size (includes targeted exa ms where dose is matched to clinical indication); or iterative reconstruction.
== END 2024-07-06 02:01 ==
LOC: DI 01:42
PROVIDERS: PCP Nurse Practitioner Family; Visit Provider Nurse Practitioner Family
DX: M51.362 Other intervertebral disc degeneration, lumbar region with discogenic back pain and lower extremity pain (principal)
CPT/HCPCS: 72131

== ENCOUNTER 2024-09-02 02:54 | Outpatient (CLI) | payer MEDICAID, SELFPAY ==
--- NOTE | 2024-09-02 | DI.RAD_ITS ---
Exam(s) XR CHEST 2V PA LATERAL EXAM: XR CHEST 2V PA LATERAL CLINICAL HISTORY: R06.02 Shortness of breath. TECHNIQUE: 2D digital imaging was performed. COMPARISON: CR XR CHEST 2V PA LATERAL from 08/08/2022 FINDINGS: 2 views: There is mild cardiomegaly. Mediastinum not widened Left lung is clear. There is very subtle increased density in the lateral right lung base. No pleur al effusions. No pulmonary edema. IMPRESSION: There is very subtle increased density in the lateral right lung base, possibly mild area of infiltra te. No pleural effusions. Mild cardiomegaly. No pulmonary edema. DATA REPOSITORY: RADIATION DOSE DELIVERED:
== END 2024-09-02 03:14 ==
LOC: DI 02:54
PROVIDERS: PCP Nurse Practitioner Family; Visit Provider Nurse Practitioner Family
DX: R06.02 Shortness of breath (principal)
CPT/HCPCS: 71046

== ENCOUNTER 2024-10-18 02:02 | Outpatient (CLI) | payer MEDICAID, SELFPAY ==
--- NOTE | 2024-10-18 13:30 | DI.US_ITS ---
APPROVED REPORT EXAM: Comprehensive 2D, Doppler, and color-flow Echocardiogram Patient Location: Out-Patient Woodworking Machine Offbearer: Solis Gross RDCS (AE) Indications: Cardiomegaly Conclusion Normal left ventricular wall thickness and chamber size. Ejection fraction is 60%. Wall motion is n ormal Normal right ventricular size and function Left atrium is moderately enlarged. Right atrium is mildly dilated Aortic valve is sclerotic and probably trileaflet. There is moderate aortic regurgitation. There is no aortic stenosis Normal mitral valve with mild regurgitation Right ventricular systolic pressure could not be estimated Wall motion Left Ventricle The left ventricle is normal size. The left ventricular systolic function is normal. The left ventric ular ejection fraction is within the normal range. There is normal left ventricular wall thickness. T here is normal LV segmental wall motion. There is no ventricular septal defect visualized. LVEF is 60 %. Right Ventricle The right ventricle is normal size. The right ventricular systolic function is normal. Atria Left atrium is moderately dilated. Right atrium is mildly dilated. The interatrial septum is intact w ith no evidence for an atrial septal defect. Aortic Valve The aortic valve is sclerotic. Aortic valve is probably trileaflet. There is no aortic valvular steno sis. Moderate aortic regurgitation. Mitral Valve The mitral valve is normal in structure. No evidence of mitral valve stenosis. Mild mitral regurgitat ion. Tricuspid Valve The tricuspid valve is normal in structure. There is no tricuspid valve stenosis. Trace tricuspid reg urgitation. Unable to assess PA pressure. Pulmonic Valve The pulmonary valve is normal in structure. There is no pulmonic valvular stenosis. Trace pulmonic re gurgitation. Great Vessels The aortic root is normal in size. The ascending aorta is normal in size. Aortic arch is normal in ca liber. IVC is normal in size and collapses >50% with inspiration. Pericardium There is no pericardial effusion. 2D Dimensions IVSD d PLAX 1.02 cm F: 0.6-1.0 Ao Root d 2.37 cm F: 2.7 - 3.3 LVPW d PLAX 1.04 cm F: 0.6 - 1.0 Ao Asc Diam d 2.88 cm F: 2.3 - 3.1 LVID d PLAX 4.82 cm F: 3.8 - 5.2 LVDs 3.27 cm F: 2.2 - 3.5 LV EF Teichholz 60.3 % FS 32.21 % LV EDV (Teich) 108.8 mL LV ESV (Teich) 43.2 mL Stroke Vol Index (Teich) 34.35 M-Mode TAPSE 1.93 cm (M/F) >1.7 Auto EF LV EDV A4C 93.8 mL LV EDV A2C 101.3 mL LV EDV BP 99.9 mL LV ESV A4C 42.3 mL LV ESV A2C 40.8 mL LV ESV BP 41.0 mL LVEF(%) A4C 54.9 % LVEF(%) A2C 59.7 % LVEF(%) BP 59.0 % LV SV A4C 51.4 ml LV SV A2C 60.5 ml LV SV BP 58.9 ml LV CO A4C 2.9 L/min LV CO A2C 3.4 L/min LV CO BP 3.1 L/min HR A4C 56.79 BPM HR A2C 55.64 BPM LV EDV Index (BP) LA Volume LA Length A4C 4.9 cm LA Length A2C 5.4 cm LA Area A4C s 17.51 cm2 LA Area A2C s 20.67 cm2 LA Vol A4C A-L 52.59 mL LA Vol A2C A-L 67.49 mL LA Vol Biplane A-L 62.1 mL LA Vol/BSA A4C A-L LA Vol/BSA A2C A-L LA Vol/BSA BP A-L 32.5 mL/m2 LA Vol A4C MOD 49.2 mL LA Vol A2C MOD 66.1 mL LA Vol BP MOD 59.2 mL RA Volume RA Area A4C 11.9 cm2 RA ESV A4C (A-L) 32.2mL RA Vol/BSA A4C A-L RA Length A4C 3.7 cm RA ESV A4C (MOD) 31.3mL LV Diastology MV E' medial 0.108 (>0.07 m/s) MV E Vmax 1.12 (0.4-1.3 m/s) MV E/E' MED 10.43 (<14) MV A Vmax 0.80 (0.4-1.3 m/s) MV E' lateral 0.086 (>0.1 m/s) E/A Ratio 1.4 MV E/E' LAT 13.01 (<14) MV E' Average 0.097 m/s MV E/E'(average) 11.58 Aortic Valve AoV Vmax 1.75 m/s LVOT Vmax 0.91 m/s AoV Peak Grad 37.0 mmHg LVOT Peak Grad 3.3 mmHg AoV Area (Vmax) 1.07 cm2 LVOT VTI 0.233 m AoV VTI 0.420 m LVOT Mean Grad 2.0 mmHg AoV Mean Kirby. 1.20 m/s LVOT SV 48.06 mL AoV Mean Grad 6.6 mmHg LVOT Diam s 1.60 cm AoV Area (VTI) 1.14 cm2 AV Regurg Peak Gr. 12.21 mmHg Velocity Ratio 0.52 AR Decel [place] 2.0m/sec2 AR DT 2014 msec AR PHT 584 msec AR Vmax 3.93 m/s Mitral Valve MV DT 160 (160-240 msec) Pulmonary Valve PV Vmax 0.70 (0.5-1.5 m/s) RVOT Vmax 0.58 m/s PV Peak Grad 2.0 mmHg RVOT Peak Gr. 1.3 mmHg PV Mean [place] 0.53 m/s RVOT VTI 0.128 m PV Mean Grad 1.2 mmHg RVOT Mean Gr. 0.8 mmHg
== END 2024-10-18 02:22 ==
LOC: DI 02:02
PROVIDERS: PCP Nurse Practitioner Family; Visit Provider Internal Medicine Cardiovascular Disease
DX: I35.0 Nonrheumatic aortic (valve) stenosis (principal)
CPT/HCPCS: 93306

== ENCOUNTER 2024-10-29 00:48 | Outpatient (CLI) | payer MEDICAID, SELFPAY ==
--- NOTE | 2024-10-29 | DI.CT_ITS ---
Exam(s) CT CHEST WO EXAM: CT CHEST WO CLINICAL HISTORY: Pneumonia, unspecified organism, J18.9. TECHNIQUE: Imaging protocol: Axial computed tomography images were obtained and coronal and sagittal reformatted images were created and reviewed. Computer aided detection (CAD) was utilized. CONTRAST MATERIAL: Noncontrast COMPARISON: CR XR CHEST 2V PA LATERAL from 08/08/2022 CR XR CHEST 2V PA LATERAL from 09/02/2024 FINDINGS: Pulmonary parenchyma: No consolidation. No suspicious nodules. Mildly increased posterior basilar elena bpleural markings which could represent dependent changes. Interstitial changes: None. Emphysema: None. Tracheobronchial tree: No mucous plugging. No bronchiectasis . Pleura: No effusion or pneumothorax. Heart: The heart is mildly dilated. The coronary arteries show no visible calcifications. Trace pe ricardial effusion. Aorta: Thoracic aorta non-dilated. Mild atherosclerotic changes. Lymph nodes: No enlarged lymph nodes. Bones: Mild degenerative changes are seen. No evidence of compression fracture. Pleural fat extend ing between lateral right 7th and 8th ribs. Upper abdomen: Unremarkable. Soft tissues: Unremarkable. IMPRESSION: Mildly increased densities at the right lung base. No focal area of consolidation. RADIATION DOSE DELIVERED: 229.92mGy.cm Total DLP 229.92mGy.cm Total DLP DATA REPOSITORY: All CT scans at this facility are submitted to the National Radiology Data Registry (NRDR) Dose Index Registry (DIR) with the [employer] (ACR). RADIATION OPTIMIZATION: All CT scans at this facility use at least one of these dose optimization te chniques: automated exposure control; mA and/or kV adjustment per patient size (includes targeted exa ms where dose is matched to clinical indication); or iterative reconstruction.
== END 2024-10-29 01:08 ==
LOC: DI 00:48
PROVIDERS: PCP Nurse Practitioner Family; Visit Provider Nurse Practitioner Family
DX: J18.9 Pneumonia, unspecified organism (principal)
CPT/HCPCS: 71250

== ENCOUNTER 2024-11-17 08:46 | Outpatient (CLI) | payer MEDICAID, SELFPAY ==
--- NOTE | 2024-11-17 08:45 | RT.EKG_ITS ---
APPROVED REPORT Exam: Resting ECG Reason for Exam: SOB Patient Location: O HR:70 bpm ECG Measurements Heart Rate 70 AXIS FL 186 P 20 QRSd 98 QRS 65 QT 410 T 55 QTc 443 Conclusion Sinus rhythm...normal P axis, V-rate 50- [address] depression, lateral leads...ST <-0.04mV, I aVL V5 V6
== END 2024-11-17 08:47 | disposition home or self-care (01) ==
LOC: DI.CARD 08:48
PROVIDERS: PCP Nurse Practitioner Family; Visit Provider Registered Nurse
DX: R06.02 Shortness of breath (principal); I51.7 Cardiomegaly
CPT/HCPCS: 93010

== ENCOUNTER 2024-11-17 12:00 | Outpatient (CLI) | payer MEDICAID, SELFPAY | END 2024-11-17 12:01 | disposition home or self-care (01) | PROVIDERS: PCP Nurse Practitioner Family; Visit Provider Registered Nurse | DX: R00.2 Palpitations (principal) | CPT/HCPCS: 93270 ==

== ENCOUNTER 2024-11-25 01:05 | Outpatient (CLI) | payer MEDICAID, SELFPAY ==
--- NOTE | 2024-11-25 07:30 | DI.NM_ITS ---
APPROVED REPORT Exam: Pharmacologic Patient Location: Out-Patient Room/Bed: Stress Nurse: Isabella Crawley RN Ordering Provider:JAEL EDDY, Contact Number: BMI: 36.75 Baseline Rhythm: Sinus Rhythm Indications: Chest pain, dyspnea Medical History Medical History: Cardiomegaly, pneumonea, chronic pain syndrome, generalized weakness, insomnia, HLD, hypothyroidism, heart murmur, RA, fibromyalgia, refusal of blood transfusions; Jehovas Witness, lupu s, palpitations, aortic insufficiancy, percardial effusion Cardiac Medications: Atenolol, symbicort, celecoxib, duloxetine, gabapentin, hydroxyzine, levothyroxi ne, lorazepam, nortriptyline, omeprazole, prednisone, rosuvastatin, spiriva, tramadol, trazodone Allergies: Iodinated contrast media, albuterol Cardiac Risk Factors: Family hx, HLD Previous Cardiac Procedures: None Pretest Chest Pain Characteristics: None Exercise History: Sedentary Physical Disabilities: Gnerealized weakness Lung Sounds: Clear to auscultation Heart Sounds: Regular Stress Test Details Test: Pharmacologic stress testing performed using 0.4 mg of regadenoson per 5 mL given IV over 10 s econds. Reason for pharmacologic stress test: physical limitation. Nuclear Acquisition: Rest Tc-99m/Stress Tc-99m 1 day Rest Isotope: Tc-99m Sestamibi. Dose: 10.0 Date: 11/25/2024 Injection Time: 1110 Stress Isotope: Tc-99m Sestamibi. Dose: 30.0 Date: 11/25/2024 Injection Time: 1249 HR Resting HR Supine: 63 bpm Max Heart Rate (APMHR): 156 bpm Target HR (85% APMHR): 133 bpm Max HR Achieved: 77 bpm % of APMHR: 49 Recovery HR: 70 bpm BP Resting BP Supine: 146/90 mmHg Max BP: 150/60 mmHg Recovery BP: 132/68 mmHg ECG Resting ECG: Sinus Rhythm Ectopy: None Stress ECG: Sinus Rhythm ST Change: Nondiagnostic low heart rate Arrhythmia: None Recovery ECG: Sinus Rhythm Recovery ST Change: Nondiagnostic low heart rate Recovery Arrhythmia: None Clinical Stress Symptoms: Mild SOB Angina Score: None Rate Pressure Product: [id number] Stress ECG Conclusion 1. Resting electrocardiogram was normal 2. Patient underwent testing using pharmacologic stress with regadenoson 3. Peak heart rate achieved was 49% of maximal predicted for age 4. The electrocardiographic portion of the test was nondiagnostic 5. See MPI report Stress Test Summary STAGE HR BP SpO2 Symptoms NOTES Supine 63 146/90 92% 1 min post Lexiscan injection 73 150/60 92% Mild SOB 3 min post Lexiscan injection 73 140/68 96% 6 min post Lexiscan injection 70 132/68 91% All symptoms resolved. MPI Conclusion Myocardial perfusion is normal. There is no ischemia or evidence of prior infarction Ejection fraction is 66% with normal wall motion
[2024-11-25] MEDS: Regadenoson 0.4 MG/5 ML SYR IVP (13:05)
== END 2024-11-25 01:25 ==
LOC: DI 01:05
PROVIDERS: PCP Nurse Practitioner Family; Visit Provider Internal Medicine Cardiovascular Disease
DX: R07.9 Chest pain, unspecified (principal); R06.00 Dyspnea, unspecified
CPT/HCPCS: 78452; 93017; J2785

== ENCOUNTER 2024-12-21 07:26 | Outpatient (CLI) | payer MEDICAID, SELFPAY ==
--- NOTE | 2024-12-21 09:00 | W.CARDEVENT ---
Date of service: 12/21/24 Time of Service: 09:00 Cardiac Event Recorder Referring Provider:: Tamiko Garcia Indications:: Palpitations Cardiac Event Note: This is a cardiac event monitor. Patient was monitored for 29 days. Rhythm throughout was sinus. Average heart rate overall was 72. Minimum was 58, maximum was 122. There were no significant ventricular dysrhythmias. There was no atrial fibrillation, no high-grade AV block, no pauses greater than 3 seconds. Reported symptoms correlated to sinus rhythm
== END 2024-12-21 07:27 | disposition home or self-care (01) ==
LOC: CARDOPNVT 07:26
PROVIDERS: PCP Nurse Practitioner Family; Visit Provider Internal Medicine Cardiovascular Disease
DX: R00.2 Palpitations (principal)
CPT/HCPCS: 93272

== ENCOUNTER 2024-12-28 00:54 | Outpatient (CLI) | payer MEDICAID, SELFPAY ==
--- NOTE | 2024-12-28 12:17 | DI.RAD_ITS ---
Exam(s) XR FOOT RT COMPLETE EXAM: XR FOOT RT COMPLETE CLINICAL HISTORY: Right foot pain and swelling,M79.671. TECHNIQUE: 2D digital imaging was performed. Three views. COMPARISON: CR XR FOOT LT COMPLETE from 03/19/2024 FINDINGS: BONES: No acute fracture is present. No bony destructive lesion is seen. Tiny plantar calcaneal spur . Ossicles adjacent to cuboid. JOINTS: No dislocation present. No significant degenerative changes. Plantar arch is maintained. SOFT TISSUE: Mild soft tissue swelling. No abnormal gas collection or foreign body. IMPRESSION: Tiny plantar calcaneal spur. DATA REPOSITORY: RADIATION DOSE DELIVERED:
== END 2024-12-28 01:14 ==
LOC: DI 00:54
PROVIDERS: PCP Nurse Practitioner Family; Visit Provider Podiatrist
DX: M79.671 Pain in right foot (principal); M77.31 Calcaneal spur, right foot
CPT/HCPCS: 73630

== ENCOUNTER 2025-01-14 01:44 | Outpatient (CLI) | payer MEDICAID, SELFPAY ==
[2025-01-14] MEDS: Levalbuterol HFA 15 GM INH 4 PUFF IH (14:34)
[2025-01-14] MEDS: Inhaler, Assist Device 1 EACH MC (14:34)
--- NOTE | 2025-02-10 11:21 | W.PFT ---
Date of service: 01/14/25 Time of Service: 13:02 Pulmonary Function Test Result Indications: Dyspnea Interpretation Spirometry: No airflow obstruction. Restrictive spirometry. No significant bronchodilator response. Lung Volumes: Moderate restrictive lung disease Diffusion Capacity: Normal diffusion Airway Pressure: Normal airways resistance Impression There is moderate restrictive lung disease without a decreased diffusion. Clinical Correlation therefore is recommended.
== END 2025-01-14 01:45 | disposition home or self-care (01) ==
LOC: RT 01:44
PROVIDERS: PCP Nurse Practitioner Family; Visit Provider Student in an Organized Health Care Education/Training Program
DX: J98.4 Other disorders of lung (principal)
CPT/HCPCS: 94060; 94726; 94729

== ENCOUNTER 2025-01-14 14:26 | Inpatient (IN) | payer MEDICAID, SELFPAY ==
[2025-01-14] VITALS (57 sets, daily range): BP systolic 136–173; BP diastolic 64–122; PULSE 62–78; RESP 2–24; TEMP 36.2–36.4; O2SAT 87–99
--- NOTE | 2025-01-14 14:15 | RT.EKG_ITS ---
APPROVED REPORT Exam: Resting ECG Reason for Exam: Dyspnea Patient Location: E HR:65 bpm ECG Measurements Heart Rate 65 AXIS NM 179 P 46 QRSd 96 QRS 72 QT 425 T 77 QTc 443 Conclusion Sinus rhythm...normal P axis, V-rate 60- 99 Nonspecific T abnrm, anterolateral leads...T <-0.10mV, I aVL V2-V6 Sinus rhythm with non specific T wave abnormality. No significnat change from prior 11/17/24. WD
--- NOTE | 2025-01-14 14:46 | ED.GENADUL_ITS ---
Discharge Plan Disposition Patient Disposition: Admit to [facility] Condition: Stable Discharge Details Chief Complaint: SOB Clinical Impression: Hypoxia, History of restrictive lung disease, Lupus (systemic lupus erythematosus), Pneumonia, Subconjunctival hemorrhage of right eye Primary Care Provider: Rachael Brito ED Provider: Funmi Almonte Home Meds and New Rx's Prescriptions: No Action nystatin 100,000 unit/gram powder 1 applic TP BID Qty: 60 3RF duloxetine 60 mg capsule,delayed release(DR/EC) 60 mg PO BID lorazepam 2 mg tablet 2 mg PO QHS multivitamin 1 EACH capsule 1 cap PO DAILY triamcinolone acetonide 0.5 % cream 1 applic topical BID Qty: 15 0RF rosuvastatin 5 mg tablet 5 mg PO HS Qty: 90 4RF omeprazole 40 mg capsule,delayed release(DR/EC) 40 mg PO DAILY Qty: 90 4RF trazodone 50 mg tablet 150 mg PO HS Qty: 270 3RF nortriptyline 75 mg capsule 75 mg PO HS Qty: 90 3RF prednisone 5 mg tablet 2.5 mg PO DAILY Qty: 45 3RF atenolol 50 mg tablet 75 mg PO DAILY Qty: 135 3RF tramadol 25 mg tablet 25 mg PO BID PRN tiotropium bromide [Spiriva with HandiHaler] 18 mcg capsule, w/inhalation device 1 cap inhalation DAILY Rx Instructions: puncture 1 cap using device; one dose = 2 inhalations celecoxib 200 mg capsule 200 mg PO BID gabapentin 400 mg capsule 800 mg PO TID Rx Instructions: Take 2 capsules by mouth three times a day, 3 capsules at bedtime gabapentin 400 mg capsule 1,200 mg PO HS Rx Instructions: Take 3 capsules at bedtime celecoxib 200 mg capsule 200 mg PO BID hydroxyzine HCl 25 mg tablet 25 mg PO TID PRN budesonide-formoterol [Symbicort] 80-4.5 mcg/actuation HFA aerosol inhaler 2 puff inhalation DAILY nystatin-triamcinolone 100,000-0.1 unit/gram-% ointment 1 applic topical BID Rx Instructions: Apply to affected areas twice daily until healed hydroxyzine HCl 25 mg tablet 25 mg PO TID levothyroxine 112 mcg tablet 112 mcg PO DAILY Qty: 90 3RF HPI General Date/Time Provider Initiated Documentation: 01/14/25 14:28 . HPI Narrative: 64-year-old female with history of lupus on chronic steroids, peripheral neuropathy, recently diagnosed restrictive lung disease presents for evaluation of shortness of breath. Since Friday she has had increased shortness of breath. She has had a nonproductive cough. She does have some redness to her right medial eye secondary to the intense coughing. Has not had any fevers or chills. No leg pain or swelling. She has had a somewhat recent nuclear stress test which she reports is unremarkable. She was evaluated by pulmonary on January 04. That is when she was diagnosed with restrictive lung disease. She does have Spiriva and Advair at home which she has been using but has not helped with her symptoms. No recent increase in her steroid use. She is on a small dose of steroids daily. Denies any fevers or chills. No nausea or vomiting. She is able to tolerate p.o. She gets extremely short of breath with any exertion. Symptoms do resolve with rest. She gets very anxious when she gets short of breath exacerbating her symptoms. She did have recent infection to foot and was placed on antibiotics by podiatry. She has been off antibiotics for the last 4 days. Her infection on her foot did heal. Related Data Home Medications ?Medication ?Instructions ?Recorded ?Confirmed multivitamin 1 cap PO DAILY 01/18/13 01/04/25 nystatin 100,000 unit/gram topical 1 applic topical BID Intertrigo 09/10/18 01/04/25 powder #60 grams triamcinolone acetonide 0.5 % 1 applic topical BID #15 grams 05/30/22 01/04/25 topical cream omeprazole 40 mg capsule,delayed 40 mg PO DAILY #90 tab-caps 07/23/23 01/04/25 release rosuvastatin 5 mg tablet 5 mg PO HS #90 tabs 07/23/23 01/04/25 trazodone 50 mg tablet 150 mg (3 x 50 mg) PO HS #270 11/03/23 01/04/25 tab-caps nortriptyline 75 mg capsule 75 mg PO HS #90 tab-caps 02/04/24 01/04/25 atenolol 50 mg tablet 75 mg (1.5 x 50 mg) PO DAILY #135 03/01/24 01/04/25 tab-caps prednisone 5 mg tablet 2.5 mg (1/2 x 5 mg) PO DAILY #45 03/01/24 01/04/25 tab-caps budesonide-formoterol HFA 80 2 puff inhalation DAILY 11/05/24 12/28/24 mcg-4.5 mcg/actuation aerosol inhaler (Symbicort) celecoxib 200 mg capsule 200 mg PO BID 11/05/24 01/04/25 celecoxib 200 mg capsule 200 mg PO BID 11/05/24 01/04/25 gabapentin 400 mg capsule 1,200 mg PO HS 11/05/24 01/04/25 gabapentin 400 mg capsule 800 mg PO TID 11/05/24 01/04/25 hydroxyzine HCl 25 mg tablet 25 mg PO TID PRN 11/05/24 01/04/25 nystatin-triamcinolone 100,000 1 applic topical BID 11/05/24 01/04/25 unit/gram-0.1 % topical ointment tiotropium bromide 18 mcg capsule 1 cap inhalation DAILY 11/05/24 01/04/25 with inhalation device (Spiriva with HandiHaler) tramadol 25 mg tablet 25 mg PO BID PRN 11/05/24 01/04/25 duloxetine 60 mg capsule,delayed 60 mg PO BID 11/17/24 01/04/25 release hydroxyzine HCl 25 mg tablet 25 mg PO TID 11/17/24 01/04/25 lorazepam 2 mg tablet 2 mg PO QHS 11/17/24 01/04/25 levothyroxine 112 mcg tablet 112 mcg PO DAILY #90 tabs 11/24/24 01/04/25 Previous Rx's ?Medication ?Instructions ?Recorded nystatin 100,000 unit/gram topical 1 applic topical BID Intertrigo 09/10/18 powder #60 grams triamcinolone acetonide 0.5 % 1 applic topical BID #15 grams 05/30/22 topical cream omeprazole 40 mg capsule,delayed 40 mg PO DAILY #90 tab-caps 07/23/23 release rosuvastatin 5 mg tablet 5 mg PO HS #90 tabs 07/23/23 trazodone 50 mg tablet 150 mg (3 x 50 mg) PO HS #270 11/03/23 tab-caps nortriptyline 75 mg capsule 75 mg PO HS #90 tab-caps 02/04/24 atenolol 50 mg tablet 75 mg (1.5 x 50 mg) PO DAILY #135 03/01/24 tab-caps prednisone 5 mg tablet 2.5 mg (1/2 x 5 mg) PO DAILY #45 03/01/24 tab-caps levothyroxine 112 mcg tablet 112 mcg PO DAILY #90 tabs 11/24/24 Allergies Allergy/AdvReac Type Severity Reaction Status Date / Time Iodinated Contrast Media Allergy Unknown Hives Verified 01/14/25 14:39 (Iodinated Contrast- Oral and IV Dye) albuterol AdvReac Intermediate Chest Verified 01/14/25 14:39 heaviness and cough General Stated Complaint: SOB CHRISTOPHER: 2 Review of Systems Narrative: Remainder of review of systems otherwise negative except for as noted in the HPI x 10. Exam Narrative Exam Narrative: General: non-toxic, no respiratory distress, comfortable HEENT: normocephalic, atraumatic, lids and lashes normal, PERRL, EOMI, anicteric sclera, no conjunctival injection, moist oral mucosa Card: regular rate and rhythm, S1S2, no murmurs, rubs, or gallops Lungs: Minimal air exchange, clear to auscultation bilaterally. no wheezes, rales, rhonchi, or retractions Abd: soft, non-tender, non-distended, normal bowel sounds, no rebound or guarding, no peritoneal signs Musculoskeletal: full range of motion of arms and legs, no tenderness to palpation. no clubbing, cyanosis, or edema Neurologic: appropriate for age, strength normal Psych: alert and oriented Skin: no petechiae, no lesions, warm and dry Course Vital Signs Vital signs: Vital Signs Temperature 36.4 C L 01/14/25 14:31 Pulse 68 01/14/25 14:31 Respiratory Rate 22 01/14/25 14:31 Blood Pressure 162/81 H 01/14/25 14:31 Pulse Oximetry 96 01/14/25 14:31 Temperature 36.4 C L 01/14/25 14:31 Temperature Source Tympanic 01/14/25 14:31 Pulse 68 01/14/25 14:31 Respiratory Rate 22 01/14/25 14:31 Blood Pressure 162/81 H 01/14/25 14:31 Pulse Oximetry 96 01/14/25 14:31 Oxygen Delivery Method Room Air 01/14/25 14:31 Oxygen Flow Rate 0 01/14/25 14:31 Pain Level 5 01/14/25 14:31 Comment chronic pain - at her baseline 01/14/25 14:31 Medical Decision Making 64-year-old female with history of lupus on chronic steroids, restrictive lung disease, peripheral neuropathy presents for evaluation of increased shortness of breath as well as cough for the last 5 days. At time my evaluation she has very diminished air exchange. Oxygen saturations are 96% on room air. EKG does not show any acute ischemic changes. Chest x-ray shows possible new findings in the right lung. Laboratory studies show mild low white count which is baseline. Electrolytes are normal. Troponin is normal. BNP normal. She does have an elevated D-dimer although she does not have lupus and is on chronic steroid. On reassessment patient is hypoxic on room air with oxygen saturations of 88% at rest. She states that she has been testing her oxygen saturation at home and it sometimes goes into the 70s with exertion. She does not have home oxygen. She was placed on 2 L nasal cannula and does feel improved. I have discussed her allergy to contrast. She states that she has an iodine allergy but is able to get IV contrast that is used today. She had a CT in 2023 with contrast without any difficulty. Chest CT with IV contrast was obtained. This is negative for PE. There is a possible pneumonia. Given her hypoxia today we will check blood cultures and start her on IV ceftriaxone and azithromycin. I do feel she will require admission for further evaluation and treatment. Case discussed with hospitalist who will admit to their service. Quality:SDOH Health Related Social Needs: No Data to Display Critical Care Time Critical Care Time Attestation: CRITICAL CARE Total critical care time: 35 minutes Critical care concerns: Hypoxia Critical care interventions: DuoNeb, IV Solu-Medrol, IV magnesium, oxygen, IV antibiotics, hospitalist consultation Total critical care time included the assessment and discussions as described in the emergency department history, physical, and medical decision making. The critical care time provided excludes separately billable procedures. PFSH All Active Problems (Updated 01/14/25 @ 18:44 by Funmi Almonte MD) Subconjunctival hemorrhage of right eye (Acute) Pneumonia (Acute) Lupus (systemic lupus erythematosus) (Chronic) History of restrictive lung disease (Acute) Hypoxia (Acute) Restrictive lung disease (Acute) Ulcer of left foot, limited to breakdown of skin (Acute) Ulcer of right foot limited to breakdown of skin (Acute) Pain in right foot (Acute) Fissure in skin (Acute) Callus (Acute) Blister (Acute) Dyspnea (Acute) Cardiomegaly (Acute) Tailor's bunionette, left (Acute) Peroneal tendinitis, left leg (Acute) Stress fracture, left foot, initial encounter for fracture (Acute) High serum vitamin B12 (Acute) Metatarsalgia of left foot (Acute) Tailor's bunion of left foot (Acute) Pain in left foot (Acute) Nail dystrophy (Acute) Neuropathic ulcer of left foot with fat layer exposed (Acute) Poor balance (Acute) Abscess of right foot (Acute) Cellulitis (Acute) Ulcer of right foot with fat layer exposed (Acute) Chronic pain syndrome (Chronic) Generalized weakness (Acute) Insomnia (Acute) Nighttime regimen including lorazepam, trazodone and nortriptyline as of 08/2021 Atypical chest pain (Acute) 2019-negative NPi at [facility], normal EKG 08/2021 Elevated glucose (Acute) Hyperlipidemia (Acute) Lupus (Acute) Right knee DJD (Acute) IBS (irritable bowel syndrome) (Chronic) Refusal of blood transfusions as patient is 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) Peripheral neuralgia (Chronic) Neutropenic disorder (Chronic) Neuropathy (Chronic) Hypothyroidism (Chronic) Heart murmur (Chronic) HX of pericardial effusion 2010-echo showed normal cardiac function, EF of 70%, 2+ aortic insufficiency` Gastroesophageal reflux disease without esophagitis (Chronic 09/24/16) Discoid lupus erythematosus (Chronic) Chronic pain syndrome (Chronic 05/07/12) 04/11/11; NARCOTIC CONTARCT 06/19/16 CONTRACT DISCONTINUED-NO LONGER NEEDED PER [facility] B12 deficiency anemia (Chronic) Stenosis of aortic valve (Chronic) Medical History (Updated 01/14/25 @ 18:44 by Funmi Almonte MD) Pneumonia Rheumatoid arthritis Fibromyalgia Surgical History Status post breast biopsy Status post laparoscopic hysterectomy History of hysterectomy Hysterectomy, Laproscopic Biopsy of breast (~1996) Family History Mother Heart disease Father Essential hypertension Heart disease Stroke Brother Depression Social History Smoking/Tobacco Use Status: Never Second Hand Exposure: Yes Smoking risk assessment performed?: Yes Alcohol Intake: current Alcohol Intake frequency: holidays/special occasions only Drug use: Never Substance use type: does not use Caregiver/Support person: Yes Household members: spouse and children Housing: house Communication Needs: None Pets and animals: Yes Pets and animals: cat(s) Sexually active: No Current gender identity: female What is your relationship status?: How often do you talk on the phone with friends or family?: twice per week How often do you get together with friends or relatives?: once per week Do you belong to any clubs or organized social groups?: no Panel score (0-1 are the most socially isolated patients): 2 Renate/Synagogue: Gnosticism Special renate needs: Yes Agree to transfusion: No Seatbelt use: always Drive intox or ride w/intox bottom hoop driver: No Do you feel safe at home: Yes Do you feel safe in your relationship?: Yes
[2025-01-14] MEDS: Albuterol/Ipratropium 3 ML UPD VIAL UPD ×2 (14:54→23:38)
[2025-01-14] MEDS: methylPREDNISolone SUCC 125 MG VIAL IM (14:54)
[2025-01-14] MEDS: MAGNESIUM SULFATE 2 GM/50 ML BAG IV_INF (14:55)
[2025-01-14 15:00] LABS: Abs Immature Grans 0.02 10^3/uL (0.0-0.06); Absolute Basophil Count 0.06 10^3/uL (0.0-0.2); Absolute Eosinophil Count 0.08 10^3/uL (0.0-0.7); Absolute Lymphocyte Count 0.82 10^3/uL (1.2-3.4); Absolute Monocyte Count 0.68 10^3/uL (0.1-0.8); Absolute Neutrophil Count 2.09 10^3/uL (1.2-6.7); Basophils % 1.6 %; Eosinophils % 2.1 %; HCT 34.5 % (36.0-46.0); HGB 11.4 g/dL (11.2-15.7); Immature Grans % 0.5 %; Lymphocytes % 21.9 %; MCH 30.2 pg (27.0-33.0); MCV 92 fL (80-95); Monocytes % 18.1 %; Neutrophils % 55.8 %; Platelet Count 310 10^3/uL (130-400); RBC 3.77 10^6/uL (3.93-5.22); RDW 13.9 % (11.7-14.6); RDW-SD 46.5 fL; WBC 3.75 10^3/uL (4.4-10.8)
[2025-01-14 15:22] LABS: ALT 29 U/L (14-59); AST 23 U/L (15-37); Albumin 3.8 g/dL (3.4-5.0); Alkaline Phosphatase 98 U/L (46-116); Anion Gap 6.4 mmol/L (3-11); BUN 9 mg/dL (7-18); Bilirubin, Total 0.7 mg/dL (0.2-1.0); CO2 31.6 mmol/L (21.0-32.0); CREATININE 0.9 mg/dL (0.55-1.02); Calcium 9.3 mg/dL (8.5-10.1); Chloride 104 mmol/L (98-107); Estimated GFR 71.39 (mL/min/1.73m2); Glucose 96 mg/dL (74-106); NT-proBNP 275 pg/mL (<300); Potassium 4.1 mmol/L (3.5-5.1); Sodium 142 mmol/L (136-145); Total Protein 7.9 g/dL (6.4-8.2); Troponin I 10 ng/L (<or=51)
[2025-01-14 15:29] LABS: D-Dimer 1225 ng/mlFEU (<500)
--- NOTE | 2025-01-14 15:34 | DI.RAD_ITS ---
Exam(s) XR CHEST 2V PA LATERAL EXAM: XR CHEST 2V PA LATERAL CLINICAL HISTORY: SOB. TECHNIQUE: 2D digital imaging was performed. COMPARISON: CR XR CHEST 2V PA LATERAL from 09/02/2024 FINDINGS: 2 views: There is cardiomegaly. Mediastinum is not widened. There is subtle increased markings in the mid right lung zone as well as over both lung lópez but th is may be exaggerated by lordotic technique on the frontal view. No evidence of obvious pulmonary ed sanjuana. No pleural effusions. IMPRESSION: As above. If clinically indicated follow-up CT scan can be performed for added sensitivity/specifici ty. DATA REPOSITORY: RADIATION DOSE DELIVERED:
[2025-01-14 16:23] LABS: Troponin I 11 ng/L (<or=51)
--- NOTE | 2025-01-14 16:30 | DI.CT_ITS ---
Exam(s) CT CHEST PE CTA EXAM: CT CHEST PE CTA CLINICAL HISTORY: hypoxia, SOB. TECHNIQUE: Imaging Protocol: Axial CT angiography was performed with multi-slice acquisition and mu lti-planar and/or 3D reconstructions. Lung Computer Aided Detection (CAD) was utilized. CONTRAST MATERIAL: Intravenous: Omnipaque 350 contrast volume:100 mL COMPARISON: CT CT CHEST WO from 10/29/2024 CR XR CHEST 2V PA LATERAL from 01/14/2025 FINDINGS: Tracheobronchial tree: Patent where visualized. No bronchiectasis. Pulmonary parenchyma: There are small bilateral pleural effusions. Subjacent infiltrates are seen in the lower lobes which may represent atelectasis. There are ground-glass infiltrate seen in the lung s predominantly in the lower lobes bilaterally. Pulmonary Arteries: No evidence of filling defect to suggest pulmonary emboli. Mediastinum and Whitley: No dominant adenopathy or fluid collection. The esophagus is unremarkable. Visualized thyroid gland: Unremarkable. Pleura: No pneumothorax. Heart: Cardiomegaly. No coronary artery calcifications are seen. There may be a very small pericardi al effusion. Aorta: Thoracic aorta non-dilated. No evidence of dissection. Upper abdomen: Unremarkable. Soft tissues: Unremarkable. Bones: Within normal limits for the patient's age. IMPRESSION: 1. No evidence of pulmonary embolism, thoracic aortic dissection or aneurysm. 2. Bilateral pleural effusions, ground-glass infiltrates and cardiomegaly raising the question of con gestive heart failure. Please correlate clinically. 3. Subjacent infiltrates in the lung bases bilaterally. This may represent atelectasis or pneumonia. RADIATION DOSE DELIVERED: 101.72mGy.cm Total DLP DATA REPOSITORY: All CT scans at this facility are submitted to the National Radiology Data Registry (NRDR) Dose Index Registry (DIR) with the [employer] (A[employer]). RADIATION OPTIMIZATION: All CT scans at this facility use at least one of these dose optimization te chniques: automated exposure control; mA and/or kV adjustment per patient size (includes targeted exa ms where dose is matched to clinical indication); or iterative reconstruction.
[2025-01-14 16:40] LABS: COVID-19 PCR Negative (Negative); Influenza A PCR Negative (Negative); Influenza B PCR Negative (Negative); RSV PCR Negative (Negative)
[2025-01-14 16:41] LABS: Source Nasopharynx
[2025-01-14] MEDS: Normal Saline - Diluent 50 ML VIAL IJ (17:53)
[2025-01-14] MEDS: Omnipaque 350 MG/ML 100 ML BTL IJ (17:54)
[2025-01-14] MEDS: cefTRIAXone 1 GM/50 ML BAG IVPB (18:40)
[2025-01-14] MEDS: AZITHROMYCIN 500 MG in Normal Saline 250 ML 250 MG IVPB (19:10)
--- NOTE | 2025-01-14 19:28 | HPE_ITS ---
Date of service: 01/14/25 Time of Service: 19:28 Assessment and Plan Assessment and plan (1) Acute hypoxic respiratory failure: Start date: 01/14/25 Status: Acute Assessment and plan: This is a 64-year-old lady with acute respiratory symptoms and need for O2 supplementation which is not her baseline. She does have a recent diagnosis of restrictive lung disease and is on inhalers with little improvement. She will be admitted for treatment of her bilateral lower lobe infiltrate pneumonia with a negative CT for PE though she did have a positive D-dimer. She is on chronic low-dose prednisone for lupus or rheumatoid arthritis, both medical problems which could cause a positive D-dimer. She has no history of thromboembolic events. The most likely source of her acute hypoxemia is her infiltrate but also she does have restrictive lung disease which is new diagnosis. Nebulized treatments with O2 supplementation and treat pneumonia. Patient will be admitted as an inpatient these treatments with plans for discharge home. She is a full code. (2) Pneumonia: Start date: 01/14/25 Status: Acute Assessment and plan: Bilateral lower lobe infiltrate the patient placed on treatment for community- acquired pneumonia with IV Rocephin and doxycycline having been given 1 dose of Zithromax which will be converted because of possible drug interactions. (3) Lupus (systemic lupus erythematosus): Status: Chronic Assessment and plan: Continue low-dose prednisone with no indication for IV steroids at this time. If patient worsens she could be treated with stress steroids. (4) History of restrictive lung disease: Status: Chronic Assessment and plan: Recent diagnosis and on inhalers with little improvement. She did have a history of secondary tobacco smoke exposure when she was a child with her father being a smoker. Continue follow-up with pulmonology. Continue inhalers for now. (5) Hypothyroidism: Status: Chronic Assessment and plan: TSH within normal range with continuation of outpatient supplement dosing of levothyroxine 112 mcg daily. (6) Chronic pain syndrome: Status: Chronic Assessment and plan: Patient has been prescribed tramadol which is rarely used and this will not be given while hospitalized with patient on lorazepam at night for sleep. (7) Rheumatoid arthritis: Assessment and plan: On low-dose prednisone with (8) Neuropathy: Status: Chronic Assessment and plan: Continue outpatient medical therapy. (9) Hyperlipidemia: Status: Chronic Assessment and plan: Continue outpatient medical therapy. (10) Depression with anxiety: Status: Chronic Assessment and plan: Patient is on antidepressant and lorazepam at night for sleep. She would not be given tramadol while on lorazepam. She is rarely on tramadol. VPMS was consistent with this pattern of use at home. History of Present Illness History of Present Illness Chief Complaint: 4-day history of dry cough and increasing dyspnea with exertion. Narrative: This is a 64-year-old female patient who has recent diagnosis of restrictive lung disease on controller and rescue inhalers with little improvement. She recently had a pulmonary consultation with diagnosed her with restrictive lung disease. She did have secondary focus for growing up with her dad smoking but she is not a smoker. She presents with a 4-day history of progressive dyspnea upon exertion and dry cough. She has been no fever or chills and has not produced sputum as stated. She denies chest pain or palpitations. She has not been dizzy and has no GI or complaints. She is on low-dose prednisone chronically for lupus and RA with rare use of tramadol for pain of her joints. She does take lorazepam at night. As that she rarely takes tramadol with her lorazepam. She is not on oxygen at home and was found to be hypoxic in the ED requiring O2 supplementation and imaging for possible PE was negative but positive for bilateral lower lobe infiltrates and evidence of possible CHF with a normal BNP. Patient was initiated on antibiotics for community-acquired pneumonia with Rocephin and doxycycline IV with admission for O2 supplementation and close monitoring. She is not wheezing and found her inhalers minimally helpful and she was not initiated on IV steroids. Her pneumonia is not severe. Patient was comfortable with O2 supplementation but still has some dyspnea with exertion in the hospital room on [facility]. She does plan to return home when improved and she will follow-up with pulmonology. She has seen cardiology with a negative nuclear stress test in the recent past. As stated, she is not having chest pain. Troponins were negative. Lab did not reveal any elevation of the WBC with no significant findings except for positive D-dimer with negative PE evaluation. She is a full code. Review of Systems Narrative: 13 point review of systems otherwise unrevealing or stable. She has had no weight gain or peripheral edema. PFSH All Active Problems (Updated 01/15/25 @ 11:08 by Nicholas Vieyra) Depression with anxiety (Chronic) Chronic anxiety (Acute) Acute hypoxic respiratory failure (Acute) Subconjunctival hemorrhage of right eye (Acute) Pneumonia (Acute) Lupus (systemic lupus erythematosus) (Chronic) History of restrictive lung disease (Chronic) Hypoxia (Acute) Restrictive lung disease (Acute) Ulcer of left foot, limited to breakdown of skin (Acute) Ulcer of right foot limited to breakdown of skin (Acute) Pain in right foot (Acute) Fissure in skin (Acute) Callus (Acute) Blister (Acute) Dyspnea (Acute) Cardiomegaly (Acute) Tailor's bunionette, left (Acute) Peroneal tendinitis, left leg (Acute) Stress fracture, left foot, initial encounter for fracture (Acute) High serum vitamin B12 (Acute) Metatarsalgia of left foot (Acute) Tailor's bunion of left foot (Acute) Pain in left foot (Acute) Nail dystrophy (Acute) Neuropathic ulcer of left foot with fat layer exposed (Acute) Poor balance (Acute) Abscess of right foot (Acute) Cellulitis (Acute) Ulcer of right foot with fat layer exposed (Acute) Chronic pain syndrome (Chronic) Generalized weakness (Acute) Insomnia (Acute) Nighttime regimen including lorazepam, trazodone and nortriptyline as of 08/2021 Atypical chest pain (Acute) 2019-negative N[facility] at [facility], normal EKG 08/2021 Elevated glucose (Acute) Hyperlipidemia (Chronic) Lupus (Acute) Right knee DJD (Acute) IBS (irritable bowel syndrome) (Chronic) Refusal of blood transfusions as patient is Mandaeism (Chronic 09/05/17) Peripheral neuralgia (Chronic) Neutropenic disorder (Chronic) Neuropathy (Chronic) Hypothyroidism (Chronic) Heart murmur (Chronic) HX of pericardial effusion 2010-echo showed normal cardiac function, EF of 70%, 2+ aortic insufficiency` Gastroesophageal reflux disease without esophagitis (Chronic 09/24/16) Discoid lupus erythematosus (Chronic) Chronic pain syndrome (Chronic 05/07/12) 04/11/11; NARCOTIC CONTARCT 06/19/16 CONTRACT DISCONTINUED-NO LONGER NEEDED PER JGS B12 deficiency anemia (Chronic) Stenosis of aortic valve (Chronic) Medical History (Updated 01/15/25 @ 11:08 by Nicholas Vieyra) Pneumonia Rheumatoid arthritis Fibromyalgia Surgical History Status post breast biopsy Status post laparoscopic hysterectomy History of hysterectomy Hysterectomy, Laproscopic Biopsy of breast (~1996) Family History Mother Heart disease Father Essential hypertension Heart disease Stroke Brother Depression Social History Smoking/Tobacco Use Status: Never Second Hand Exposure: Yes Smoking risk assessment performed?: Yes Alcohol Intake: current Alcohol Intake frequency: holidays/special occasions only Drug use: Never Substance use type: does not use Caregiver/Support person: Yes Household members: spouse and children Housing: house Communication Needs: None Pets and animals: Yes Pets and animals: cat(s) Sexually active: No Current gender identity: female What is your relationship status?: How often do you talk on the phone with friends or family?: twice per week How often do you get together with friends or relatives?: once per week Do you belong to any clubs or organized social groups?: no Panel score (0-1 are the most socially isolated patients): 2 Renate/Pentecostalism: Mandaeism Special renate needs: Yes Agree to transfusion: No Seatbelt use: always Drive intox or ride w/intox cdl company driver: No Do you feel safe at home: Yes Do you feel safe in your relationship?: Yes Meds Allergies and Home Medications Allergies Allergy/AdvReac Type Severity Reaction Status Date / Time Iodinated Contrast Media Allergy Unknown Hives Verified 01/14/25 21:19 (Iodinated Contrast- Oral and IV Dye) albuterol AdvReac Intermediate Chest Verified 01/14/25 21:19 heaviness and cough Home Medications ?Medication ?Instructions ?Recorded ?Confirmed ?Type multivitamin 1 cap PO DAILY 01/18/13 01/14/25 History nystatin 100,000 unit/gram topical 1 applic topical BID Intertrigo 09/10/18 01/14/25 Rx powder #60 grams triamcinolone acetonide 0.5 % 1 applic topical BID #15 grams 05/30/22 01/14/25 Rx topical cream omeprazole 40 mg capsule,delayed 40 mg PO DAILY #90 tab-caps 07/23/23 01/14/25 Rx release rosuvastatin 5 mg tablet 5 mg PO HS #90 tabs 07/23/23 01/14/25 Rx trazodone 50 mg tablet 150 mg (3 x 50 mg) PO HS #270 11/03/23 01/14/25 Rx tab-caps nortriptyline 75 mg capsule 75 mg PO HS #90 tab-caps 02/04/24 01/14/25 Rx atenolol 50 mg tablet 75 mg (1.5 x 50 mg) PO DAILY #135 03/01/24 01/14/25 Rx tab-caps prednisone 5 mg tablet 2.5 mg (1/2 x 5 mg) PO DAILY #45 03/01/24 01/14/25 Rx tab-caps budesonide-formoterol HFA 80 2 puff inhalation DAILY 11/05/24 01/14/25 History mcg-4.5 mcg/actuation aerosol inhaler (Symbicort) celecoxib 200 mg capsule 200 mg PO BID 11/05/24 01/14/25 History gabapentin 400 mg capsule 1,200 mg PO HS 11/05/24 01/14/25 History gabapentin 400 mg capsule 800 mg PO TID 11/05/24 01/14/25 History hydroxyzine HCl 25 mg tablet 25 mg PO TID PRN 11/05/24 01/14/25 History nystatin-triamcinolone 100,000 1 applic topical BID 11/05/24 01/14/25 History unit/gram-0.1 % topical ointment tiotropium bromide 18 mcg capsule 1 cap inhalation DAILY 11/05/24 01/14/25 History with inhalation device (Spiriva with HandiHaler) tramadol 25 mg tablet 25 mg PO BID PRN 11/05/24 01/14/25 History duloxetine 60 mg capsule,delayed 60 mg PO BID 11/17/24 01/14/25 History release lorazepam 2 mg tablet 2 mg PO QHS 11/17/24 01/14/25 History levothyroxine 112 mcg tablet 112 mcg PO DAILY #90 tabs 11/24/24 01/14/25 Rx Exam Narrative Exam Narrative: General: Patient appears appropriate age, moderately obese and in no acute distress. She is alert and oriented x 3. HEENT: Normocephalic, eyes with pupils equal and reactive to light symmetrically, extraocular movement intact and sclera are anicteric. There is a small subconjunctival hemorrhage in the right eye from coughing. Oropharynx is moist mucosa with fair dentition. Neck: Supple without JVD. Back: Kyphotic without CVA tenderness. Lungs: Fair aeration with decreased aeration at the bases without increased expiratory phase or expiratory wheeze. Bronchovesicular breath sounds diffusely. No focalizing rales or rhonchi. Breast: Exam deferred. Heart: Regular rate and rhythm with no murmurs gallops appreciated. Abdomen: Obese contour, soft nontender to palpation with no palpable hepatosplenomegaly. Bowel sounds positive all quadrants. No guarding or rebound. Genitalia/rectal: Exam deferred. Extremities: Without clubbing, cyanosis or grossly pitting edema.. Capillary refill. Skin: Normal color, warm and dry. Neuro: Cranial nerves II through XII gross intact, no focal motor deficits and no tremor. Psych: Normal affect though slightly anxious, normal mood. No abnormal thought processes. Remote and recent memory intact. Results Imaging Imaging Studies: EXAM: CT CHEST PE CTA Date of exam: 01/14/2025 CLINICAL HISTORY: hypoxia, SOB. TECHNIQUE: Imaging Protocol: Axial CT angiography was performed with multi- slice acquisition and multi-planar and/or 3D reconstructions. Lung Computer Aided Detection (CAD) was utilized. CONTRAST MATERIAL: Intravenous: Omnipaque 350 contrast volume:100 mL COMPARISON: CT CT CHEST WO from 10/29/2024 CR XR CHEST 2V PA LATERAL from 01/14/2025 FINDINGS: Tracheobronchial tree: Patent where visualized. No bronchiectasis. Pulmonary parenchyma: There are small bilateral pleural effusions. Subjacent infiltrates are seen in the lower lobes which may represent atelectasis. There are ground-glass infiltrate seen in the lungs predominantly in the lower lobes bilaterally. Pulmonary Arteries: No evidence of filling defect to suggest pulmonary emboli. Mediastinum and Whitley: No dominant adenopathy or fluid collection. The esophagus is unremarkable. Visualized thyroid gland: Unremarkable. Pleura: No pneumothorax. Heart: Cardiomegaly. No coronary artery calcifications are seen. There may be a very small pericardial effusion. Aorta: Thoracic aorta non-dilated. No evidence of dissection. Upper abdomen: Unremarkable. Soft tissues: Unremarkable. Bones: Within normal limits for the patient's age. IMPRESSION: 1. No evidence of pulmonary embolism, thoracic aortic dissection or aneurysm. 2. Bilateral pleural effusions, ground-glass infiltrates and cardiomegaly raising the question of congestive heart failure. Please correlate clinically. 3. Subjacent infiltrates in the lung bases bilaterally. This may represent atelectasis or pneumonia. Labs 01/15/25 06:23 01/15/25 06:23 Labs: Laboratory Results - last 24 hr 01/14/25 01/14/25 14:50 16:00 WBC 3.75 L RBC 3.77 L Hgb 11.4 Hct 34.5 L MCV 92 MCH 30.2 MCHC 33.0 RDW 13.9 Plt Count 310 MPV 10.0 Immature Gran % 0.5 Neutrophils % 55.8 Lymphocytes % 21.9 Monocytes % 18.1 Eosinophils % 2.1 Basophils % 1.6 Nucleated RBC % 0.0 Absolute Neutrophils 2.09 Absolute Lymphocytes 0.82 L Absolute Monocytes 0.68 Absolute Eosinophils 0.08 Absolute Basophils 0.06 D-Dimer 1225 H Sodium 142 Potassium 4.1 Chloride 104 Carbon Dioxide 31.6 Anion Gap 6.4 BUN 9 Creatinine 0.9 Est GFR (CKD-EPI 2020) 71.39 Glucose 96 Calcium 9.3 Magnesium 2.0 Total Bilirubin 0.7 AST 23 ALT 29 Alkaline Phosphatase 98 Troponin I 10 11 NT-Pro-B Natriuret Pep 275 Total Protein 7.9 Albumin 3.8 COVID-19 Source Nasopharynx SARS-CoV-2 (PCR) Negative Influenza Type A (PCR) Negative Influenza Type B (PCR) Negative RSV (PCR) Negative Last Vital Signs Temp 36.4 C L 01/14/25 14:31 Pulse 68 01/14/25 14:31 Resp 18 01/14/25 16:43 BP 162/81 H 01/14/25 14:31 Pulse Ox 96 01/14/25 16:43 Time Spent Time spent with Patient: >75 minutes Time was spent: preparing to see the patient(eg.review tests), obtaining and/or reviewing separately otained hiistory, ordering medications,tests, procedures, indepentently interpreting results, counseling the patient and care coordination
--- NOTE | 2025-01-14 21:22 | W.PC.ACHO ---
Registration Status: Primary Language: Preferred Language: ED Information & Data Chief Complaint SOB 01/14/25 14:55 Triage Note increasing SOB since 01/14/25 14:31 friday. worse on Friday. worse with exertion. seen at pulmonary rehab today. dx with restrictive lung disease. blood spot in right eye after a coughing fit. panics when she can't breathe. denies CP. has gained weight. recent Abx for foot infection. Medical / Surgical History (Last Reviewed 01/14/25 @ 19:29 by Nicholas Vieyra) Pneumonia Rheumatoid arthritis Fibromyalgia (Last Reviewed 01/14/25 @ 19:29 by Nicholas Vieyra) Status post breast biopsy Status post laparoscopic hysterectomy History of hysterectomy Hysterectomy, Laproscopic Biopsy of breast (~1996) Most Recent Vital Signs Temperature 36.4 C L 01/14/25 14:31 Temperature Source Tympanic 01/14/25 14:31 Pulse 77 01/14/25 20:30 Pulse 77 01/14/25 20:30 Respiratory Rate 20 01/14/25 20:30 Blood Pressure 136/114 H 01/14/25 20:17 Blood Pressure Mean 121 01/14/25 20:17 Pulse Oximetry 93 01/14/25 20:30 Oxygen Delivery Method Nasal Cannula 01/14/25 16:43 Oxygen Flow Rate 2 01/14/25 16:43 Pain Level 5 01/14/25 14:31 Comment chronic pain - at her baseline 01/14/25 14:31 Allergies Iodinated Contrast Media (Iodinated Contrast- Oral and IV Dye) Allergy (Unknown, Verified 01/14/25 14:39) Hives albuterol Adverse Reaction (Intermediate, Verified 01/14/25 14:39) Chest heaviness and cough Active Medications Generic Name Dose Route Start Last Admin Trade Name Freq PRN Reason Stop Dose Admin Iohexol 100 ml 01/14/25 18:00 01/14/25 17:54 Omnipaque 350 Mg/Ml 100 Ml Btl IJ 02/13/25 23:59 100 ml DIRECTED FIDEL Administration Sodium Chloride 50 ml 01/14/25 18:00 01/14/25 17:53 Normal Saline - Diluent 50 Ml Vial IJ 50 ml .FOR DI USE FIDEL Administration IV IV Catheter Type [Left Saline Lock Antecubital] IV Catheter Gauge [Left 20 Antecubital] Diagnostics 01/14/25 01/14/25 01/14/25 Range/Units 17:43 16:00 14:50 WBC 3.75 L (4.4-10.8) 10^3/uL RBC 3.77 L (3.93-5.22) 10^6/uL Hgb 11.4 (11.2-15.7) g/dL Hct 34.5 L (36.0-46.0) % MCV 92 (80-95) fL MCH 30.2 (27.0-33.0) pg MCHC 33.0 (32.0-36.0) % RDW 13.9 (11.7-14.6) % Plt Count 310 (130-400) 10^3/uL MPV 10.0 (8.0-11.0) fL Immature Gran % 0.5 % Neutrophils % 55.8 % Lymphocytes % 21.9 % Monocytes % 18.1 % Eosinophils % 2.1 % Basophils % 1.6 % Nucleated RBC % 0.0 (0.0-0.3) % Absolute Neutrophils 2.09 (1.2-6.7) 10^3/uL Absolute Lymphocytes 0.82 L (1.2-3.4) 10^3/uL Absolute Monocytes 0.68 (0.1-0.8) 10^3/uL Absolute Eosinophils 0.08 (0.0-0.7) 10^3/uL Absolute Basophils 0.06 (0.0-0.2) 10^3/uL D-Dimer 1225 H (<500) ng/mlFEU Sodium 142 (136-145) mmol/L Potassium 4.1 (3.5-5.1) mmol/L Chloride 104 (98-107) mmol/L Carbon Dioxide 31.6 (21.0-32.0) mmol/L Anion Gap 6.4 (3-11) mmol/L BUN 9 (7-18) mg/dL Creatinine 0.9 (0.55-1.02) mg/dL Est GFR (CKD-EPI 2020) 71.39 (mL/min/1.73m2) Glucose 96 (74-106) mg/dL Calcium 9.3 (8.5-10.1) mg/dL Magnesium 2.0 (1.8-2.4) mg/dL Total Bilirubin 0.7 (0.2-1.0) mg/dL AST 23 (15-37) U/L ALT 29 (14-59) U/L Alkaline Phosphatase 98 (46-116) U/L Troponin I Cancelled 11 10 (<or=51) ng/L NT-Pro-B Natriuret Pep 275 (<300) pg/mL Total Protein 7.9 (6.4-8.2) g/dL Albumin 3.8 (3.4-5.0) g/dL COVID-19 Source Nasopharynx SARS-CoV-2 (PCR) Negative (Negative) Influenza Type A (PCR) Negative (Negative) Influenza Type B (PCR) Negative (Negative) RSV (PCR) Negative (Negative) 01/14/25 19:00 Blood Culture - Pending Blood 01/14/25 18:50 Blood Culture - Pending Blood Intake and Output - 24 Hour Total 01/14/25 14:26 thru 01/14/25 20:39 Intake Total 350 Balance 350 Weight 92.533 kg Intake: IV 350 Problems (Last Reviewed 01/14/25 @ 19:29 by Nicholas Vieyra) Depression with anxiety (Chronic) Acute hypoxic respiratory failure (Acute) Subconjunctival hemorrhage of right eye (Acute) Pneumonia (Acute) Lupus (systemic lupus erythematosus) (Chronic) History of restrictive lung disease (Chronic) Hypoxia (Acute) Hyperlipidemia (Chronic) Neuropathy (Chronic) Hypothyroidism (Chronic) Chronic pain syndrome (Chronic 05/07/12) v v v v v v v v v Sending and/or Receiving Nurses: Please use comment section below to note any information pertinent to the patient hand-off not included above. Information / Comments: AAO x 4 female on 2l NC, VSS. patient comes from home. no apparent skin concerns per ER Nurse. Patient has chronic copd, and does not use 02 at home. was brought in by her . d-dimer elevated at 1225, CTA negative for PE, questionable PNA. home medications not confirmed by ER. Patient to be transported to floor by ER staff. Report received from: report from In[facility]
[2025-01-14 22:45] LABS: TSH (W/Ref FT4) 0.66 uIU/mL (0.36-3.74)
[2025-01-14] MEDS: Gabapentin 400 MG CAP 1200 MG PO (22:46)
[2025-01-14] MEDS: Enoxaparin 40 MG/0.4 ML SYR SC (22:46)
[2025-01-14] MEDS: Rosuvastatin 5 MG TAB PO (22:46)
[2025-01-14] MEDS: DOXYCYCLINE 100 MG in Normal Saline 100 ML IVPB (22:46)
[2025-01-14] MEDS: Celecoxib 200 MG CAP PO (22:47)
[2025-01-14] MEDS: LORazepam 1 MG TAB 2 MG PO (22:47)
[2025-01-14] MEDS: traZODone 50 MG TAB 150 MG PO (22:47)
[2025-01-14] MEDS: Normal Saline Flush 10 ML SYR IVP (22:48)
[2025-01-14 23:47] LABS: Bilirubin Negative (Negative); Blood Negative (Negative); Clarity Clear (Clear); Glucose Negative (Negative); Ketones Negative (Negative); Leukocyte Esterase Trace (Negative); Nitrite Negative (Negative); Urobilinogen 0.2 mg/dL (Up to 0.2)
[2025-01-14 23:57] LABS: Bacteria Few HPF (Negative); C & S Indicated? No/Sq. Contamination; Casts Negative LPF (Negative); Crystals Negative HPF (Negative); Epithelial Cells Moderate HPF (Negative); Mucus Negative (Negative); RBC 0-2 HPF (0-2)
[2025-01-15] VITALS (8 sets, daily range): BP systolic 118–145; BP diastolic 57–77; PULSE 65–84; RESP 9–20; TEMP 36–36.9; O2SAT 92–96
[2025-01-15] MEDS: Albuterol/Ipratropium 3 ML UPD VIAL UPD (05:53)
[2025-01-15] MEDS: Levothyroxine 112 MCG TAB PO (06:13)
[2025-01-15] MEDS: Gabapentin 400 MG CAP 800 MG PO ×3 (06:13→17:05)
[2025-01-15 06:45] LABS: HCT 34.3 % (36.0-46.0); HGB 11.5 g/dL (11.2-15.7); MCH 29.9 pg (27.0-33.0); MCHC 33.5 % (32.0-36.0); MCV 89 fL (80-95); MPV 10.5 fL (8.0-11.0); Platelet Count 342 10^3/uL (130-400); RBC 3.84 10^6/uL (3.93-5.22); RDW 13.7 % (11.7-14.6); RDW-SD 44.7 fL
[2025-01-15 07:02] LABS: ALT 27 U/L (14-59); AST 18 U/L (15-37); Albumin 3.5 g/dL (3.4-5.0); Alkaline Phosphatase 98 U/L (46-116); Anion Gap 8.6 mmol/L (3-11); BUN 15 mg/dL (7-18); Bilirubin, Total 0.6 mg/dL (0.2-1.0); CO2 28.4 mmol/L (21.0-32.0); CREATININE 0.9 mg/dL (0.55-1.02); Calcium 9.4 mg/dL (8.5-10.1); Chloride 105 mmol/L (98-107); Estimated GFR 71.39 (mL/min/1.73m2); Glucose 133 mg/dL (74-106); Magnesium 2.3 mg/dL (1.8-2.4); Potassium 4.3 mmol/L (3.5-5.1); Sodium 142 mmol/L (136-145); Total Protein 7.9 g/dL (6.4-8.2)
[2025-01-15] MEDS: Celecoxib 200 MG CAP PO ×2 (08:10→21:31)
[2025-01-15] MEDS: Pantoprazole 40 MG TABCR PO (08:10)
[2025-01-15] MEDS: Multivitamin TAB 1 TAB PO (08:10)
[2025-01-15] MEDS: Normal Saline Flush 10 ML SYR IVP ×2 (08:11→21:34)
[2025-01-15] MEDS: Atenolol 50 MG TAB 75 MG PO (08:11)
[2025-01-15] MEDS: DULoxetine 30 MG CAP 60 MG PO ×2 (08:11→21:31)
[2025-01-15] MEDS: predniSONE 5 MG TAB 2.5 MG PO (08:11)
[2025-01-15] MEDS: Nystatin POWDER 15 GM JAR TP ×2 (08:12→21:33)
[2025-01-15] MEDS: Budesonide/Formoterol 80/4.5 6.9 GM 60 PUFF INH IH (08:58)
[2025-01-15] MEDS: DOXYCYCLINE 100 MG in Normal Saline 100 ML IVPB ×2 (09:29→22:52)
--- NOTE | 2025-01-15 09:37 | INITIAL_ITS ---
Date of service: 01/15/25 Time of Service: 09:46 Care Management Initial Assmt Initial Assessment Reason for Hospitalization: acute hypoxic respiratory failure Functional Status/Living Situation Patient Presentation: Cale was lying in bed when CM met with her. She stated that she is starting to feel better, although she is not at her baseline. She reported that she is waiting for results, and expects that she will be here for a couple more days. She stated that she lives in [place] with her and two children, who are 13 and 16. She reported that she has support from the [employer] program, which has made it possible for her to be her paid caregiver, and paid for a chair lift to be installed in her home. She reported that she has good support in the community from friends and family; one of her good friends arrived during the conversation and brought her a goodie bag and balloons. CM will continue to follow. Town of Residence: [place] Resides with: Spouse (Vaughn Charlton) Caregiver/Guardian: is her caregiver, paid through the [employer] program. Natural Supports: and children Instrumental Activities of Daily Living (ADLs): Independent Medications Medication Management: No Issues/Barriers identified Physical Functioning/Mobility Assistive Device: 4WW Advance Directives Advance Directives: Do you have an Advance Directive: N 08/23/13 13:16 AD On File at [facility]: N 08/23/13 13:16 Date Asked 01/07/25 01/07/25 13:19 AD Date Reviewed 01/14/25 01/14/25 21:27 COLST On File at [facility] COLST Date Scanned Code Status Resuscitation Status Full Code Insurance Coverage/Financial Issues Insurance: [facility] Care Team Visit Care Team Role Provider Type Gabriela Phelan APRN MD [facility] STAFF PHYSICIAN Rachael Brito Primary Care Provider NURSE PRACTITIONER Lynn Bowen Other Providers LABORATORY HELPER Lee Ann Rojas Other Providers LABORATORY HELPER Kristin Lebron Other Providers LABORATORY HELPER Sabrina Omalley RN Other Providers LABORATORY HELPER Genesis Yanez Other Providers LABORATORY HELPER Funmi Almonte MD Emergency Provider [facility] STAFF PHYSICIAN Nicholas Vieyra Admit Provider NON-[facility] STAFF PHYSICIAN Attending Provider Discharge Potential Discharge Needs: PCP F/U Appt Anticipated Barriers to Discharge: None Identified Patient/Family Education Needs: Review discharge instructions, discuss Ask Me Three Transportation: Private vehicle Plan: Anticipate Cale will return home once medically cleared. Her will drive her home via private vehicle. She will follow up with her PCP and discharge plan of care. CM will continue to follow. Social Determinants of Health Screening Social Determinants of health last assessed in clinic: 01/15/25 Will the Patient Participate in the Screening?: Yes Do you worry about having a steady place to live?: no (CM discussed this with Cale, who stated that she feels she has steady housing, but her house could use some work.) Problems where you live: water leaks In the past 12 months, have you had to go without electric, gas, oil or water in your home?: no 1. Within the past 12 months, we worried whether our food would run out before we got money to buy more.: Never true 2. Within the past 12 months, the food we bought just didn't last and we didn't have money to get more.: Never true Has lack of transportation kept you from medical appointments or from doing things needed for daily living?: yes Has anyone in your life made you feel unsafe or unsupported?: no How hard is it for you to pay for the very basics like food, housing, medical care, and heating? Would you say it is:: Somewhat hard Do you want help finding or keeping work or a job?: I do not need or want help If for any reason you need help with day-to-day activities such as bathing, preparing meals, shopping, managing finances, etc., do you get the help you need?: I get all the help I need How often do you feel lonely or isolated from those around you?: Never Do you speak a language other than Lithuanian at home?: No Does the patient want assistance with any of the above?: Yes Comments: financial stressors at home Health Related Social Needs Health related social needs: inadequate housing (Z59.1), transportation insecurity (Z59.82) and problems related to housing/economic circumstances (Z59.89) Health related social needs details: n/a PFSH All Active Problems (Updated 01/15/25 @ 13:27 by Gabriela Phelan APRN) On deep vein thrombosis (DVT) prophylaxis (Acute) CAP (community acquired pneumonia) (Acute) Depression with anxiety (Chronic) Chronic anxiety (Acute) Acute hypoxic respiratory failure (Acute) Subconjunctival hemorrhage of right eye (Acute) Pneumonia (Acute) Lupus (systemic lupus erythematosus) (Chronic) History of restrictive lung disease (Chronic) Hypoxia (Acute) Restrictive lung disease (Acute) Ulcer of left foot, limited to breakdown of skin (Acute) Ulcer of right foot limited to breakdown of skin (Acute) Pain in right foot (Acute) Fissure in skin (Acute) Callus (Acute) Blister (Acute) Dyspnea (Acute) Cardiomegaly (Acute) Tailor's bunionette, left (Acute) Peroneal tendinitis, left leg (Acute) Stress fracture, left foot, initial encounter for fracture (Acute) High serum vitamin B12 (Acute) Metatarsalgia of left foot (Acute) Tailor's bunion of left foot (Acute) Pain in left foot (Acute) Nail dystrophy (Acute) Neuropathic ulcer of left foot with fat layer exposed (Acute) Poor balance (Acute) Abscess of right foot (Acute) Cellulitis (Acute) Ulcer of right foot with fat layer exposed (Acute) Chronic pain syndrome (Chronic) Generalized weakness (Acute) Insomnia (Acute) Nighttime regimen including lorazepam, trazodone and nortriptyline as of 08/2021 Atypical chest pain (Acute) 2019-negative NPi at [facility], normal EKG 08/2021 Elevated glucose (Acute) Hyperlipidemia (Chronic) Lupus (Acute) Right knee DJD (Acute) IBS (irritable bowel syndrome) (Chronic) Refusal of blood transfusions as patient is Yazdanism (Chronic 09/05/17) Peripheral neuralgia (Chronic) Neutropenic disorder (Chronic) Neuropathy (Chronic) Hypothyroidism (Chronic) Heart murmur (Chronic) HX of pericardial effusion 2010-echo showed normal cardiac function, EF of 70%, 2+ aortic insufficiency` Gastroesophageal reflux disease without esophagitis (Chronic 09/24/16) Discoid lupus erythematosus (Chronic) Chronic pain syndrome (Chronic 05/07/12) 04/11/11; NARCOTIC CONTARCT 06/19/16 CONTRACT DISCONTINUED-NO LONGER NEEDED PER [facility] B12 deficiency anemia (Chronic) Stenosis of aortic valve (Chronic) Medical History (Updated 01/15/25 @ 13:27 by Gabriela Phelan APRN) Pneumonia Rheumatoid arthritis Fibromyalgia Surgical History Status post breast biopsy Status post laparoscopic hysterectomy History of hysterectomy Hysterectomy, Laproscopic Biopsy of breast (~1996) Family History Mother Heart disease Father Essential hypertension Heart disease Stroke Brother Depression Social History Smoking/Tobacco Use Status: Never Second Hand Exposure: Yes Smoking risk assessment performed?: Yes Alcohol Intake: current Alcohol Intake frequency: holidays/special occasions only Drug use: Never Substance use type: does not use Caregiver/Support person: Yes Household members: spouse and children Housing: house Communication Needs: None Pets and animals: Yes Pets and animals: cat(s) Sexually active: No Current gender identity: female What is your relationship status?: How often do you talk on the phone with friends or family?: twice per week How often do you get together with friends or relatives?: once per week Do you belong to any clubs or organized social groups?: no Panel score (0-1 are the most socially isolated patients): 2 Renate/Synagogue: Yazdanism Special renate needs: Yes Agree to transfusion: No Seatbelt use: always Drive intox or ride w/intox warehouse driver: No Do you feel safe at home: Yes Do you feel safe in your relationship?: Yes
--- NOTE | 2025-01-15 10:50 | NUR.NOTE ---
Nursing Note: pt states some SOB at rest, O2 saturation 94% on RA, HR 74
--- NOTE | 2025-01-15 12:21 | PHA.REVIEW2 ---
Pharmacy Admission Review Admission Clinical Review Admission Pharmacy Review: Acute hypoxic respiratory failure (Acute) Subconjunctival hemorrhage of right eye (Acute) Pneumonia (Acute) Hypoxia (Acute) Iodinated Contrast Media (Iodinated Contrast- Oral and IV Dye) Allergy (Unknown, Verified 01/14/25 21:19) Hives albuterol Adverse Reaction (Intermediate, Verified 01/14/25 21:19) Chest heaviness and cough Resuscitation Status Full Code Height 5 ft 1.5 in Weight 90.4 kg Pharmacy Admission Review Renal Dosing Renal Dosing: BUN 15 mg/dL (7-18) 01/15/25 06:23 Creatinine 0.9 mg/dL (0.55-1.02) 01/15/25 06:23 Medications needing adjustments: Reviewed (CrCl 58.79 mL/min) List of meds needing interventions: Current medications are okay Anticoagulation Anticoagulation: Hgb 11.5 g/dL (11.2-15.7) 01/15/25 06:23 Hct 34.3 % (36.0-46.0) L 01/15/25 06:23 Plt Count 342 10^3/uL (130-400) 01/15/25 06:23 Creatinine 0.9 mg/dL (0.55-1.02) 01/15/25 06:23 DVT Prophylaxis: Reviewed Medications: Enoxaparin (40mg daily) Relevant Labs Relevant Labs: Sodium 142 mmol/L (136-145) 01/15/25 06:23 Potassium 4.3 mmol/L (3.5-5.1) 01/15/25 06:23 Chloride 105 mmol/L (98-107) 01/15/25 06:23 Magnesium 2.3 mg/dL (1.8-2.4) 01/15/25 06:23 Electrolytes, C-Reactive P, ESR: Reviewed Cardiac Review Cardiac Review: Troponin I Cancelled 01/14/25 17:43 NT-Pro-B Natriuret Pep 275 pg/mL (<300) 01/14/25 14:50 Blood Pressure 118/57 1050 Blood Pressure 145/73 0600 BP, HR, EF%: Reviewed (hr wnl) QTc Review QTc: Reviewed (443 from 01/14/25) IV to PO Switch IV Medications: Reviewed (ceftriaxone and doxycycline) Home Meds Home Med List reviewed: Intervened Relevent Home Meds Not ordered & why?: hydroxyzine (PRN), omeprazole (has order for pantoprazole), Spiriva and tramadol (PRN) Asked provider about Spiriva, they are looking into it. Had Symbicort on home med list but per external fill history most recently got Advair. Asked nurse who confirmed with patient that they use Advair. Updated home med list. Had rosuvastatin on home med list but fill history shows simvastatin. Per nurse patient is unsure which one they take. Based on fill history I added simvastatin to home med list and removed rosuvastatin. Updated current order as well. Changed 2 orders to patients own (non-formulary) - both topicals. Asked nurse to see if these could be brought in for the patient. Waiting to hear back. Current Meds Current Medication Order Review: Intervened Comments: Changed IV ED access order Pharmacy Antibiotic Review Relevant Labs: WBC 5.00 10^3/uL (4.4-10.8) 01/15/25 06:23 Temperature 36.6 C Temperature 36.8 C Pharmacy Antibiotic Activity: C/S review and Reviewed, no change Comments: Patient is on ceftriaxone and doxycycline, day 1, for pneumonia. Blood cultures pending.
--- NOTE | 2025-01-15 13:04 | PGE_ITS ---
Date of Service Date of service: 01/15/25 Time of Service: 13:04 Assessment and Plan Assessment and plan (1) Acute hypoxic respiratory failure: Start date: 01/15/25 Start time: 13:13 Status: Acute Assessment and plan: In the setting of point 2 This is a 64-year-old lady with acute respiratory admitted with new need for O2 supplementation and on RA at baseline Oxygen requirement back to baseline this AM Recent diagnosis of restrictive lung disease and is on inhalers at home - F/u outpatient - minimal improvement reported On admission, CT with bilateral LL infiltrates pointing to pneumonia with a negative PE finding despite a positive D-dimer. Will continue her chronic low-dose prednisone for lupus or rheumatoid arthritis, both medical problems which could cause a positive D-dimer. Continue Nebulized treatments - now PRN Wean O2 for sat>92% (2) CAP (community acquired pneumonia): Status: Acute Assessment and plan: As above Continue IV Rocephin and doxycycline; received 1 dose of Zithromax prior (3) Lupus (systemic lupus erythematosus): Status: Chronic Assessment and plan: Ongoing low-dose prednisone; if patient worsens she could be treated with stress steroids. (4) History of restrictive lung disease: Status: Chronic Assessment and plan: Recent Dx and on inhalers but with minimal improvement. History of secondary tobacco smoke exposure when she was a child with her father being a smoker. Outpatient follow-up with pulmonology. Continue home Tx (5) Hypothyroidism: Status: Chronic Assessment and plan: TSH 0.66 ongoing levothyroxine 112 mcg daily as per opt dosing (6) Chronic pain syndrome: Status: Chronic Assessment and plan: Outpatient tramadol rarely used on hold for now hospitalized with patient on lorazepam at night for sleep, neurontin and Trazodone and PRN hydroxyzine also at HS . (7) Rheumatoid arthritis: Assessment and plan: On low-dose prednisone - home dosing On Celebrex -home dose (8) Neuropathy: Status: Chronic Assessment and plan: Continue outpatient medical therapy with gabapentin (9) Hyperlipidemia: Status: Chronic Assessment and plan: Continue outpatient medical therapy w low dose statin (10) Depression with anxiety: Status: Chronic Assessment and plan: Ongoing home dosing of antidepressant and lorazepam at night for sleep. (11) On deep vein thrombosis (DVT) prophylaxis: Status: Acute Assessment and plan: On LMWH Discussed with Dr. Bobo Subjective Subjective Patient reports: no new complaints, feels better, tolerating liquids well, tolerating a regular diet, voiding w/o difficulty, flatus and shortness of breath; denies diarrhea, vomiting or fever Exam Narrative Exam Narrative: Constitutional Neuro:alert and orientedX 3 . No neurological focal deficit Chest:Chest is symmetrical and normal appearance Resp:Shallow respiratory pattern, speaks in short sentences, labored breathing when moving , diminished R base, no wheezing , no coarse crackles Cardio: regular rhythm, S1, S2, bilateral radial and dorsalis pedis pulses are positive, palpable GI: Abdomen is not distended, soft and non tender, bowel sounds are present Integumentary: No skin lesions or rash Extremities: moves all 4 ext. Psych: RASS 0, congruent mood and normal affect. Objective Last Vital Signs Temp 36.6 C 01/15/25 10:50 Pulse 74 01/15/25 10:50 Resp 18 01/15/25 10:50 BP 118/57 L 01/15/25 10:50 Pulse Ox 94 01/15/25 10:50 Laboratory Results - last 24 hr 01/14/25 01/14/25 01/14/25 14:50 16:00 17:43 WBC 3.75 L RBC 3.77 L Hgb 11.4 Hct 34.5 L MCV 92 MCH 30.2 MCHC 33.0 RDW 13.9 Plt Count 310 MPV 10.0 Immature Gran % 0.5 Neutrophils % 55.8 Lymphocytes % 21.9 Monocytes % 18.1 Eosinophils % 2.1 Basophils % 1.6 Nucleated RBC % 0.0 Absolute Neutrophils 2.09 Absolute Lymphocytes 0.82 L Absolute Monocytes 0.68 Absolute Eosinophils 0.08 Absolute Basophils 0.06 D-Dimer 1225 H Sodium 142 Potassium 4.1 Chloride 104 Carbon Dioxide 31.6 Anion Gap 6.4 BUN 9 Creatinine 0.9 Est GFR (CKD-EPI 2020) 71.39 Glucose 96 Calcium 9.3 Magnesium 2.0 Total Bilirubin 0.7 AST 23 ALT 29 Alkaline Phosphatase 98 Troponin I 10 11 Cancelled NT-Pro-B Natriuret Pep 275 Total Protein 7.9 Albumin 3.8 TSH 0.66 Urine Color Urine Clarity Urine pH Ur Specific [place] Urine Protein Urine Ketones Urine Blood Urine Nitrite Urine Bilirubin Urine Urobilinogen Ur Leukocyte Esterase Urine RBC Urine WBC Ur Epithelial Cells Urine Crystals Urine Bacteria Urine Casts Urine Mucus Ur Culture Indicated? Urine Glucose COVID-19 Source Nasopharynx SARS-CoV-2 (PCR) Negative Influenza Type A (PCR) Negative Influenza Type B (PCR) Negative RSV (PCR) Negative 01/14/25 01/15/25 23:07 06:23 WBC 5.00 RBC 3.84 L Hgb 11.5 Hct 34.3 L MCV 89 MCH 29.9 MCHC 33.5 RDW 13.7 Plt Count 342 MPV 10.5 Immature Gran % Neutrophils % Lymphocytes % Monocytes % Eosinophils % Basophils % Nucleated RBC % Absolute Neutrophils Absolute Lymphocytes Absolute Monocytes Absolute Eosinophils Absolute Basophils D-Dimer Sodium 142 Potassium 4.3 Chloride 105 Carbon Dioxide 28.4 Anion Gap 8.6 BUN 15 Creatinine 0.9 Est GFR (CKD-EPI 2020) 71.39 Glucose 133 H Calcium 9.4 Magnesium 2.3 Total Bilirubin 0.6 AST 18 ALT 27 Alkaline Phosphatase 98 Troponin I NT-Pro-B Natriuret Pep Total Protein 7.9 Albumin 3.5 TSH Urine Color Yellow Urine Clarity Clear Urine pH 6.0 Ur Specific [place] 1.020 Urine Protein Negative Urine Ketones Negative Urine Blood Negative Urine Nitrite Negative Urine Bilirubin Negative Urine Urobilinogen 0.2 Ur Leukocyte Esterase Trace H Urine RBC 0-2 Urine WBC 10-20 H Ur Epithelial Cells Moderate Urine Crystals Negative Urine Bacteria Few Urine Casts Negative Urine Mucus Negative Ur Culture Indicated? No/Sq. Contamination Urine Glucose Negative COVID-19 Source SARS-CoV-2 (PCR) Influenza Type A (PCR) Influenza Type B (PCR) RSV (PCR) Time Spent with Patient Time Spent with Patient: >50 minutes Time was spent: preparing to see the patient(eg.review tests), obtaining and/or reviewing separately otained hiistory, ordering medications,tests, procedures, referring, communicating with other health healthcare corporate account director, indepentently interpreting results, counseling the patient and care coordination
[2025-01-15] MEDS: cefTRIAXone 1 GM/50 ML BAG IVPB (17:06)
[2025-01-15] MEDS: hydrOXYzine HCL 25 MG TAB PO (17:40)
[2025-01-15] MEDS: traZODone 50 MG TAB 150 MG PO (21:29)
[2025-01-15] MEDS: LORazepam 1 MG TAB 2 MG PO (21:29)
[2025-01-15] MEDS: Simvastatin 10 MG TAB 5 MG PO (21:32)
[2025-01-15] MEDS: Gabapentin 400 MG CAP 1200 MG PO (21:32)
[2025-01-15] MEDS: Enoxaparin 40 MG/0.4 ML SYR SC (22:52)
[2025-01-16 00:09] VITALS: O2SAT 95
[2025-01-16 03:09] VITALS: BP 118/62; PULSE 65; RESP 19; TEMP 36.4; O2SAT 95
[2025-01-16] MEDS: Levothyroxine 112 MCG TAB PO (06:09)
[2025-01-16] MEDS: Gabapentin 400 MG CAP 800 MG PO ×2 (06:09→12:26)
[2025-01-16 07:02] LABS: HCT 32.7 % (36.0-46.0); HGB 10.5 g/dL (11.2-15.7); MCH 29.7 pg (27.0-33.0); MCHC 32.1 % (32.0-36.0); MCV 92 fL (80-95); MPV 10.7 fL (8.0-11.0); Platelet Count 271 10^3/uL (130-400); RBC 3.54 10^6/uL (3.93-5.22); RDW 14.1 % (11.7-14.6); RDW-SD 47.7 fL; WBC 5.13 10^3/uL (4.4-10.8)
[2025-01-16 07:18] LABS: ALT 26 U/L (14-59); AST 34 U/L (15-37); Albumin 3.3 g/dL (3.4-5.0); Alkaline Phosphatase 79 U/L (46-116); BUN 20 mg/dL (7-18); Bilirubin, Total 0.6 mg/dL (0.2-1.0); Chloride 105 mmol/L (98-107); Estimated GFR 62.91 (mL/min/1.73m2); Glucose 93 mg/dL (74-106); Magnesium 2.1 mg/dL (1.8-2.4); Potassium 4.7 mmol/L (3.5-5.1); Sodium 142 mmol/L (136-145); Total Protein 7.2 g/dL (6.4-8.2)
[2025-01-16 08:11] VITALS: BP 130/78; PULSE 68; RESP 15; TEMP 36.6; O2SAT 95
[2025-01-16] MEDS: Budesonide/Formoterol 80/4.5 6.9 GM 60 PUFF INH IH (08:23)
[2025-01-16 08:26] VITALS: O2SAT 98
[2025-01-16] MEDS: Nystatin POWDER 15 GM JAR TP (08:53)
[2025-01-16] MEDS: Atenolol 50 MG TAB 75 MG PO (08:54)
[2025-01-16] MEDS: Multivitamin TAB 1 TAB PO (08:54)
[2025-01-16] MEDS: predniSONE 5 MG TAB 2.5 MG PO (08:54)
[2025-01-16] MEDS: Pantoprazole 40 MG TABCR PO (08:54)
[2025-01-16] MEDS: Celecoxib 200 MG CAP PO (08:54)
[2025-01-16] MEDS: DULoxetine 30 MG CAP 60 MG PO (08:54)
[2025-01-16] MEDS: DOXYCYCLINE 100 MG in Normal Saline 100 ML IVPB (09:53)
[2025-01-16] MEDS: Normal Saline Flush 10 ML SYR IVP (09:53)
[2025-01-16 11:13] VITALS: BP 136/68; PULSE 64; RESP 17; TEMP 36.5; O2SAT 92
--- NOTE | 2025-01-16 12:04 | W.PM.DS.N ---
Date of service: 01/16/25 Time of Service: 12:04 DS: Diagnosis Discharge Diagnosis (1) Acute hypoxic respiratory failure: Status: Acute (2) CAP (community acquired pneumonia): Status: Acute (3) Lupus (systemic lupus erythematosus): Status: Chronic (4) History of restrictive lung disease: Status: Chronic (5) Hypothyroidism: Status: Chronic (6) Chronic pain syndrome: Status: Chronic (7) Rheumatoid arthritis: (8) Neuropathy: Status: Chronic (9) Hyperlipidemia: Status: Chronic (10) Depression with anxiety: Status: Chronic Discharge Plan Disposition Patient Disposition: Home Condition: Improving Discharge Details Reason For Visit: Acute hypoxic respiratory failure, Right lower lob Admit Date/Time: 01/14/25 19:48 Admit Provider: Nicholas Vieyra Attending Provider: Nicholas Vieyra Primary Care Provider: Rachael Brito Hospital Course Hospital Course: This is a 64-year-old female patient presents to the emergency department with complaints of shortness of breath and cough. Workup in the emergency department was concerning for a community-acquired pneumonia. She did have oxygen requirements. CT was negative for PE. She is chronically on low-dose prednisone for her lupus/rheumatoid arthritis. She was started on ceftriaxone and doxycycline. She was weaned off oxygen satting in the mid to high 90s on room air. She was eating and drinking bowels and bladder functioning. Safely really ambulated. White count normal and hemodynamically stable. She is safe for discharge to home. She does have a history of snoring and suspicion of sleep apnea. She will be referred to sleep clinic for outpatient sleep study this will be arranged through her primary care provider. She is being discharged on cefpodoxime and doxycycline to complete a 5-day course of doxycycline 7-day close of cefpodoxime. She should follow-up with her primary care provider return sooner for new or worsening symptoms Discharge discussed with Dr. Toledo Home Meds and New Rx's Prescriptions: New doxycycline hyclate 100 mg capsule 100 mg PO BID Qty: 7 0RF cefpodoxime 200 mg tablet 200 mg PO BID Qty: 9 0RF Rx Instructions: must administer with a meal/food Continued nystatin 100,000 unit/gram powder 1 applic TP BID Qty: 60 3RF duloxetine 60 mg capsule,delayed release(DR/EC) 60 mg PO BID lorazepam 2 mg tablet 2 mg PO QHS multivitamin 1 EACH capsule 1 cap PO DAILY triamcinolone acetonide 0.5 % cream 1 applic topical BID Qty: 15 0RF omeprazole 40 mg capsule,delayed release(DR/EC) 40 mg PO DAILY Qty: 90 4RF trazodone 50 mg tablet 150 mg PO HS Qty: 270 3RF nortriptyline 75 mg capsule 75 mg PO HS Qty: 90 3RF prednisone 5 mg tablet 2.5 mg PO DAILY Qty: 45 3RF atenolol 50 mg tablet 75 mg PO DAILY Qty: 135 3RF tramadol 25 mg tablet 25 mg PO BID PRN tiotropium bromide [Spiriva with HandiHaler] 18 mcg capsule, w/inhalation device 1 cap inhalation DAILY Rx Instructions: puncture 1 cap using device; one dose = 2 inhalations celecoxib 200 mg capsule 200 mg PO BID gabapentin 400 mg capsule 800 mg PO TID Rx Instructions: Take 2 capsules by mouth three times a day, 3 capsules at bedtime gabapentin 400 mg capsule 1,200 mg PO HS Rx Instructions: Take 3 capsules at bedtime hydroxyzine HCl 25 mg tablet 25 mg PO TID PRN nystatin-triamcinolone 100,000-0.1 unit/gram-% ointment 1 applic topical BID Rx Instructions: Apply to affected areas twice daily until healed levothyroxine 112 mcg tablet 112 mcg PO DAILY Qty: 90 3RF fluticasone propion-salmeterol [Advair Diskus] 100-50 mcg/dose blister with device 1 inh INHALATION BID Patient Comments: INHALE ONE PUFF BY MOUTH TWICE A DAY simvastatin 5 mg tablet 5 mg PO QPM Patient Comments: TAKE ONE TABLET BY MOUTH AT BEDTIME Discharge Instructions Instructions: Community-acquired pneumonia in adults Additional Instructions: please complete antibiotics as prescribed even if you feel better you will complete a 5 day course of doxycycline and a 7 day course of cefpodoxime resume your other medications as previously directed. discuss sleep study with your doctor and you have evidence/symptoms of sleep apnea Stand Alone Forms: Nursing Discharge Form Referrals: Rachael Brito [Primary Care Provider] - (I called your PCP office left a voicemail to have them give you a call to make a follow up appointment for within 1 to 2 weeks.) Activity:: Activity as Tolerated Equipment/Supplies:: No Equipment Needed Diet:: As Tolerated Discharge Orders Discharge Orders: Discharge Order (Routine); Ordered 01/16/25 Ordered By: Suzanne Spears Discharge Data Discharge Date/Time-TO BE ENTERED AT DEPARTURE: 01/16/25 13:39 DS: Summary Time Spent with Patient providing and/or coordinating discharge services: Greater than 30 minutes Status at Discharge Functional status at discharge: independent ambulation Overall status at discharge: patient is progressing back to baseline Mental Status: mental status grossly normal Speech and Movement: speech and movement normal Mood: anxious mood Affect: anxious affect Quality:SDOH Health Related Social Needs: Health related social needs inadequate housing (Z59.1), transportation insecurity (Z59.82), problems related to housing/economic circumstances (Z59.89) Health related social needs details n/a Health related social needs details: n/a Referrals and interventions: n/a Exam Narrative Exam Narrative: Elderly female of stated age no acute distress head atraumatic eyes nonicteric noninjected oral mucosa moist neck is supple full range of motion no JVD respirations even unlabored scattered coarse breath sounds in her bases left greater than right she has no wheezing good air exchange. Cardiovascular regular rate and rhythm no murmurs appreciated abdomen round soft nontender moves all extremities equal neurologic she is awake alert oriented psychiatric anxious mood and affect Psych Mental Status: mental status grossly normal Speech and Movement: speech and movement normal Mood: anxious mood Affect: anxious affect DS: Data Vitals/I&O Vitals and I&O: Vital Signs Temperature 36.5 C 01/16/25 11:13 Temperature Source Temporal Artery Scan 01/16/25 11:13 Pulse 64 01/16/25 11:13 Pulse Rhythm Regular 01/14/25 21:50 Pulse 77 01/14/25 20:30 Respiratory Rate 17 01/16/25 11:13 Respiratory Effort Normal, Non-Labored 01/14/25 21:50 Respiratory Depth Normal 01/14/25 21:50 Respiratory Pattern Normal 01/14/25 21:50 Blood Pressure 136/68 01/16/25 11:13 Blood Pressure Mean 121 01/14/25 20:17 Pulse Oximetry 92 01/16/25 11:13 Oxygen Delivery Method Room Air 01/16/25 11:13 Oxygen Flow Rate 0 01/16/25 11:13 Pain Level 0 01/15/25 16:12 Comment chronic pain - at her baseline 01/14/25 21:18 Intake & Output 01/15/25 01/16/25 01/16/25 23:59 11:59 23:59 Intake Total 300 / 640 440 / 440 Output Total 1000 / 1350 1450 / 1450 Balance -700 / -710 -1010 / -1010 Weight 91.626 kg Intake: IV 60 / 160 200 / 200 Oral 240 / 480 240 / 240 Output: Urine 1000 / 1350 1450 / 1450 Other: Urine Color Light Vanessa Yellow Urine Appearance Clear Clear Urine Odor Normal None Comment pt independent in room, toileting self. Data Completed and Pending Labs on day of discharge: Labs from last 24 hours 01/16/25 06:45 WBC 5.13 RBC 3.54 L Hgb 10.5 L Hct 32.7 L MCV 92 MCH 29.7 MCHC 32.1 RDW 14.1 Plt Count 271 MPV 10.7 Sodium 142 Potassium 4.7 Chloride 105 Carbon Dioxide 30.0 Anion Gap 7.0 BUN 20 H Creatinine 1.0 Est GFR (CKD-EPI 2020) 62.91 Glucose 93 Calcium 9.0 Magnesium 2.1 Total Bilirubin 0.6 AST 34 ALT 26 Alkaline Phosphatase 79 Total Protein 7.2 Albumin 3.3 L Preliminary micro results at discharge 01/14/25 19:00 Blood Culture - Preliminary Blood NO GROWTH 24 HOURS 01/14/25 18:50 Blood Culture - Preliminary Blood NO GROWTH 24 HOURS PFSH All Active Problems (Updated 01/15/25 @ 13:27 by Gabriela Phelan APRN) On deep vein thrombosis (DVT) prophylaxis (Acute) CAP (community acquired pneumonia) (Acute) Depression with anxiety (Chronic) Chronic anxiety (Acute) Acute hypoxic respiratory failure (Acute) Subconjunctival hemorrhage of right eye (Acute) Pneumonia (Acute) Lupus (systemic lupus erythematosus) (Chronic) History of restrictive lung disease (Chronic) Hypoxia (Acute) Restrictive lung disease (Acute) Ulcer of left foot, limited to breakdown of skin (Acute) Ulcer of right foot limited to breakdown of skin (Acute) Pain in right foot (Acute) Fissure in skin (Acute) Callus (Acute) Blister (Acute) Dyspnea (Acute) Cardiomegaly (Acute) Tailor's bunionette, left (Acute) Peroneal tendinitis, left leg (Acute) Stress fracture, left foot, initial encounter for fracture (Acute) High serum vitamin B12 (Acute) Metatarsalgia of left foot (Acute) Tailor's bunion of left foot (Acute) Pain in left foot (Acute) Nail dystrophy (Acute) Neuropathic ulcer of left foot with fat layer exposed (Acute) Poor balance (Acute) Abscess of right foot (Acute) Cellulitis (Acute) Ulcer of right foot with fat layer exposed (Acute) Chronic pain syndrome (Chronic) Generalized weakness (Acute) Insomnia (Acute) Nighttime regimen including lorazepam, trazodone and nortriptyline as of 08/2021 Atypical chest pain (Acute) 2019-negative NPi at [facility], normal EKG 08/2021 Elevated glucose (Acute) Hyperlipidemia (Chronic) Lupus (Acute) Right knee DJD (Acute) IBS (irritable bowel syndrome) (Chronic) Refusal of blood transfusions as patient is Restorationist (Chronic 09/05/17) Peripheral neuralgia (Chronic) Neutropenic disorder (Chronic) Neuropathy (Chronic) Hypothyroidism (Chronic) Heart murmur (Chronic) HX of pericardial effusion 2010-echo showed normal cardiac function, EF of 70%, 2+ aortic insufficiency` Gastroesophageal reflux disease without esophagitis (Chronic 09/24/16) Discoid lupus erythematosus (Chronic) Chronic pain syndrome (Chronic 05/07/12) 04/11/11; NARCOTIC CONTARCT 06/19/16 CONTRACT DISCONTINUED-NO LONGER NEEDED PER [facility] B12 deficiency anemia (Chronic) Stenosis of aortic valve (Chronic) Medical History (Updated 01/15/25 @ 13:27 by Gabriela Phelan APRN) Pneumonia Rheumatoid arthritis Fibromyalgia Surgical History Status post breast biopsy Status post laparoscopic hysterectomy History of hysterectomy Hysterectomy, Laproscopic Biopsy of breast (~1996) Family History Mother Heart disease Father Essential hypertension Heart disease Stroke Brother Depression Social History Smoking/Tobacco Use Status: Never Second Hand Exposure: Yes Smoking risk assessment performed?: Yes Alcohol Intake: current Alcohol Intake frequency: holidays/special occasions only Drug use: Never Substance use type: does not use Caregiver/Support person: Yes Household members: spouse and children Housing: house Communication Needs: None Pets and animals: Yes Pets and animals: cat(s) Sexually active: No Current gender identity: female What is your relationship status?: How often do you talk on the phone with friends or family?: twice per week How often do you get together with friends or relatives?: once per week Do you belong to any clubs or organized social groups?: no Panel score (0-1 are the most socially isolated patients): 2 Ernate/Mosque: Restorationist Special renate needs: Yes Agree to transfusion: No Seatbelt use: always Drive intox or ride w/intox mobile lounge driver or operator: No Do you feel safe at home: Yes Do you feel safe in your relationship?: Yes Time Spent with Patient Time Spent with Patient: 45-69 minutes Time was spent: preparing to see the patient(eg.review tests), obtaining and/or reviewing separately otained hiistory, ordering medications,tests, procedures, indepentently interpreting results and counseling the patient
--- NOTE | 2025-01-16 17:08 | CMDISCH_ITS ---
Date of service: 01/16/25 Time of Service: 17:08 LACE Index Scoring Tool Questions: Length of Stay (in days): 2 Was the patient admitted via the E.D.?: Yes Comorbidities: Chronic Pulmonary Disease and Connective Tissue Disease E.D. Visits: 0 Answers: Total Score: 10 Risk of Readmission: High Risk Care Management Discharge Plan Reason for Hospitalization: acute hypoxic respiratory failure Discharge Plan: Cale returned home today with no new services. Her drove her home via private vehicle. She will follow up with her PCP and discharge plan of care. Patient/Family Education Needs: Review discharge instructions and limitations, discussion of self care needs including ask me three. SDOH Health Related Social Needs: Health related social needs inadequate housing (Z59.1) , transportation insecurity (Z59.82), problems related to housing/economic circumstances (Z59.89) Health related social needs details n/a Health related social needs details: n/a Referrals and interventions: n/a
== END 2025-01-16 13:39 | disposition home or self-care (01) | DRG 193 ==
LOC: ER 19:23 → MS 21:27
PROVIDERS: Admitting Provider Family Medicine; Emergency Provider Emergency Medicine Emergency Medical Services; PCP Nurse Practitioner Family; Responsible Provider Nurse Practitioner Acute Care; Visit Provider Family Medicine
DX: J18.9 Pneumonia, unspecified organism (principal); J96.01 Acute respiratory failure with hypoxia; E06.3 Autoimmune thyroiditis; G89.4 Chronic pain syndrome; G62.9 Polyneuropathy, unspecified; E78.2 Mixed hyperlipidemia; F41.8 Other specified anxiety disorders; R79.1 Abnormal coagulation profile; Z79.52 Long term (current) use of systemic steroids; M32.9 Systemic lupus erythematosus, unspecified; J98.4 Other disorders of lung; K58.9 Irritable bowel syndrome, unspecified; K21.9 Gastro-esophageal reflux disease without esophagitis; I35.0 Nonrheumatic aortic (valve) stenosis; D51.9 Vitamin B12 deficiency anemia, unspecified
CPT/HCPCS: 00123; 36415; 71275; 80053; 85027; 87040; 87637; 93005; 94640; 94761; 96365; 96366; 96367; 96375; 99291; J1650; 71046; 81003; 81015; 83735; 83880; 84443; 84484; 85025; 85379; 93010; 94664; 94760; 99223; 99233; 99239; J0456; J0696; J2919; J3475; J3490; J7512; J7620

== ENCOUNTER 2025-02-16 08:15 | Outpatient (CLI) | payer MEDICAID, SELFPAY | END 2025-02-16 08:16 | disposition home or self-care (01) | PROVIDERS: PCP Nurse Practitioner Family; Visit Provider Physician Assistant Surgical | DX: J98.4 Other disorders of lung (principal) | CPT/HCPCS: 94762 ==

== ENCOUNTER 2025-02-22 01:15 | Outpatient (CLI) | payer MEDICAID, SELFPAY ==
--- NOTE | 2025-02-22 13:08 | DI.CT_ITS ---
Exam(s) CT CHEST HIGH RESOLUTION EXAM: CT CHEST HIGH RESOLUTION CLINICAL HISTORY: SOB, RLD, hx Lupus,abnl chest ct,r93.89,j98.4,m32.19. TECHNIQUE: Multi planar reconstructions were performed. CONTRAST MATERIAL: None COMPARISON: CT ABD PELVIS WO CONTRAST from 08/10/[address] CHEST WO from 10/29/[address] CHEST PE CTA from 01/14/2025 CR XR CHEST 2V PA LATERAL from 01/14/2025 FINDINGS: CHEST: LUNGS: There are no infiltrates nor ominous nodules in the left lung. The previously described subpl eural increased markings in the right lung base over the lateral basal and posterior basal segments o f the right lower lobe have improved. There has been almost complete resolution of the subpleural in filtrate in the lateral basal segment of the right lower lobe and a degree of improvement also in the posterior basal segment subpleural infiltrate. Indeed, the subpleural increased markings in the pos terior basal segment of the right lower lobe exhibit only minimal change when compared to 2015 CT sca n. There are no pleural effusions. There is no interstitial fibrotic disease. No pulmonary honeyco mbing evident.. There is pleural based addition density in the lateral aspect of the right lower lob e but this has fat density and is consistent with pleural based chest wall lipoma and is unchanged fr om CT scan of 10/29/2024. In reviewing the recent chest x-ray it appears at the ???increased marking s??? over both lung lópez on the chest x-ray was due to combination of portable technique and body h abitus. MEDIASTINUM: There is no obvious hilar nor mediastinal adenopathy. No supraclavicular adenopathy. N o axillary adenopathy. CARDIAC: Heart size is normal. Slight thickening of the anterior pericardium is again noted; maximum thickness approximately 4 mm. Caliber of the thoracic aorta is within normal limits. VISUALIZED UPPER ABDOMEN:Small nodules again noted in the medial limb of the title gland. This is un changed from 10/29/2024. This is only minimally increased in size when compared to CT scan of 2014. Left adrenal gland remains unremarkable. OSSEOUS: No significant osseous lesions.. IMPRESSION: 1. No new significant pulmonary findings. They are improved subpleural increased markings in the lat eral basal segment of the right lower lobe when compared to the CT scan of October 2024. Slightly i ncreased markings in the most medial aspect of the posterior basal segment of the right lower lobe ex hibit minimal if any significant change when compared to CT scan of 2015. 2. There are no new infiltrates, ominous pulmonary nodules nor pleural effusions and there is no intr athoracic adenopathy. 3. There is no evidence of significant interstitial disease in the lung lópez. No honeycombing evid ent. 4. Benign-appearing chest wall lipoma over the right lower lobe again noted. RADIATION DOSE DELIVERED: 474.3mGy.cm Total DLP DATA REPOSITORY: All CT scans at this facility are submitted to the National Radiology Data Registry (NRDR) Dose Index Registry (DIR) with the [employer] ([employer]). RADIATION OPTIMIZATION: All CT scans at this facility use at least one of these dose optimization te chniques: automated exposure control; mA and/or kV adjustment per patient size (includes targeted exa ms where dose is matched to clinical indication); or iterative reconstruction.
== END 2025-02-22 01:35 ==
LOC: DI 01:15
PROVIDERS: PCP Nurse Practitioner Family; Visit Provider Physician Assistant Surgical
DX: M32.19 Other organ or system involvement in systemic lupus erythematosus (principal); J98.4 Other disorders of lung; R93.89 Abnormal findings on diagnostic imaging of other specified body structures
CPT/HCPCS: 71250

== ENCOUNTER 2025-04-19 16:11 | Outpatient (REF) | payer MEDICAID, SELFPAY ==
[2025-04-19 16:16] LABS: ESR 6 mm/hr (0-30)
[2025-04-19 16:37] LABS: C-Reactive Protein < 0.50 mg/dL (<or=0.5)
[2025-04-25 11:12] LABS: Sm (Smith) Ab, IgG <8.0 CU (<20.0)
== END 2025-04-19 16:12 | disposition home or self-care (01) ==
LOC: LBN 16:11
PROVIDERS: PCP Nurse Practitioner Family; Visit Provider Internal Medicine Pulmonary Disease
DX: R06.00 Dyspnea, unspecified (principal); J98.4 Other disorders of lung; M32.19 Other organ or system involvement in systemic lupus erythematosus
CPT/HCPCS: 85652; 86038; 86140; 86225; 86235

== ENCOUNTER 2025-05-26 11:58 | Outpatient (CLI) | payer MEDICAID, SELFPAY ==
[2025-05-26] MEDS: Inhaler, Assist Device 1 EACH MC (11:10)
[2025-05-26] MEDS: Levalbuterol HFA 15 GM INH 4 PUFF IH (11:11)
--- NOTE | 2025-05-26 12:34 | W.PFT ---
Date of service: 05/26/25 Time of Service: 09:52 Pulmonary Function Test Result Indications: Restrictive lung disease Impression 1. Good patient effort was noted. ATS standards for reproducibility were met. 2. Spirometry showed no obstructive lung disease. 3. Following the administration of a bronchodilator there was not a response 4. TLC is reduced at 54% predicted, consistent with moderate restrictive lung disease 5. Was unable to complete DLCO testing
== END 2025-05-26 11:59 | disposition home or self-care (01) ==
LOC: RT 11:58
PROVIDERS: PCP Nurse Practitioner Family; Visit Provider Internal Medicine Pulmonary Disease
DX: J98.4 Other disorders of lung (principal)
CPT/HCPCS: 94060; 94729